=== PATIENT | male | born 1975 | race Caucasian/White ===

== ENCOUNTER 2023-08-12 15:23 | Outpatient (OUT) | payer MEDICAID, SELFPAY ==
[2023-08-12 16:15] LABS: Estimated Average Glucose 100 mg/dL; Glycohemoglobin A1C 5.1 % (4.5-6.2)
== END 2023-08-12 15:24 | disposition home or self-care (01) ==
LOC: LAB 15:27
PROVIDERS: PCP Nurse Practitioner Primary Care; Visit Provider Orthopaedic Surgery
DX: E13.69 Other specified diabetes mellitus with other specified complication (principal)
CPT/HCPCS: 36415; 83036

== ENCOUNTER 2025-05-25 09:53 | Outpatient (REF) | payer MEDICAID, SELFPAY ==
--- OUTSIDE RECORDS SUMMARY | 2025-05-24 09:27 | XMS_ITS | Continuity of Care Document ---
Author Organization [facility] Address [address] [place] [address] Phone Care Team Providers Care Extrusion Die Repairer Name Role Phone Lata Colby APRN Primary Care Provider Lata Colby APRN Attending Provider Care Teams Patient Care Team Team Status: Active Member Role/Relationship Status Dates Lata Colby APRN TRANSFER CAR OPERATOR DRIER-C Primary Care Provider Active Patient Care Team Team Status: Inactive Member Role/Relationship Status Dates Lata Colby APRN TRANSFER CAR OPERATOR DRIER-C Primary Care Provider Active Start: May 242024 End: May 24, 2025Lata Colby APRN TRANSFER CAR OPERATOR DRIER-CAttending ProviderActive Start: May 24, 2025 End: May 24, 2025 Chief Complaint and Reason for Visit Chief Complaint Admit Date stomach troubles May 24, 2025 1:16pm Reason for Visit Admit Date Abdominal pain May 24, 2025 1:16pm Bloating May 24, 2025 1:16pm Diarrhea May 24, 2025 1:16pm GERD (gastroesophageal reflux disease) N ovember 2024 1:16pm History of substance abuse May 1:16pm Hypertension May 24, 2025 1:16pm Nicotine dependence May 24, 2025 1:16pm Type 2 diabetes mellitus May 24, 2025 1:16pm Wellness examination May 24, 2025 1:16pm Reason for Referral Type Reason(s) Provider Provider Contact Information P k[place]e Address Start Date Referral to circuit designer Abdominal pain Diarrhea Abdominal bloating Gastroesophageal reflux qgqqcgxQ81.9 - Unspecified abdominal pain,R19.7 - Diarrhea, unspecified,R14.0 - Abdominal distension (gaseous),K21.9 - Gastro-esophageal reflux disease without esophagitisFPG GastroenterologyWork Phone: [phone] [address] [address] [address] Allergies, Adverse Reactions, Alerts Allergen Type Severity Reaction Last Updated Verified Status No Known Allergies Allergy Unknown May 24, 2025 1:17pmYesActive Social History Smoking Status Status Start Date End Date Date of Observa tion Smokes tobacco daily (finding) December 05, 2023 9:16am Observation Status Observation Response Date of Response Legal Sex Male (finding) [facility] 1974 Family History Relationship Condition Age at Onset Recorded Date/T kori mother Unknown Problems Active Problems Problem Diagnosis/Recorded Date Onset Date Stat us Chronic venous insufficiency of lower extremity December 04, 2023 7:07am Unknown Active Nicotine dependence December 07, 2023 7:18pm Unknown Active Type 2 diabetes mellitus December 05, 2023 8:32am Unknown Active Avascular necrosis of right femur December 04, 2023 7:07a m Unknown Active Diarrhea May 24, 2025 2:07pm Unknown A ctive Wellness examination May 24, 2025 2:13pm Unknow n Active Seasonal allergies December 05, 2023 8:33am Unknown Active Maxillary sinusitis December 07, 2023 7:16pm Unknown Active Bloating May 24, 2025 2:06pm Unknown A ctive History of substance abuse December 07, 2023 7:18pm Unkno wn Active GERD (gastroesophageal reflux disease) December 04, 2023 7:07am Unknown Active Abdominal pain May 24, 2025 2:12pm Unknown Active Hypertension December 05, 2023 8:31am Unknown Active Medications Medication Status Dose Units Route Directions Qty Days Refills S tart Date Stop Date End Date Reason(s) Instructions Adherence Furosemide 20 mg tablet Active 20 MG PO Daily as needed for edema January 05, 2024 2:58pm Complies with drug therapyLisinopril 20 mg tabletDiscontinued0.ROUTE.MALNAZO104 April 21, 2024 9:54amNovember 2023 9:49amHypertension Essential (primary) hypertensionTAKE 1 TABLET BY MOUTH EVERY DAYLisinopril 20 mg tabletDiscontinued0.ROUTE.RJLCVSZ350Etjgxnhb 2023 9:49amDecember 2023 3:08pmHypertension Essential (primary) hypertensionTAKE 1 TABLET BY MOUTH EVERY DAYFamotidine (Pepcid) 20 mg rfhitwKjhpqjmlgigf86GQTTTkdwy lhdip79055Bfjdxpz 2024 7:43am August 17, 2024 7:54amGastroesophageal reflux disease Gastro-esophageal reflux disease without esophagitisFamotidine (Pepcid) 20 mg bjsnbiUcoaoxrdbzft20GLBJWstqv pltxt58929Fqmgcuvf 2024 7:53amMarch 2024 6:48amGastroesophageal reflux disease Gastro-esophageal reflux disease without esophagitisFamotidine (Pepcid) 20 mg qzcfbbLkiirqpehcnc72BTGRXobhi kojkf33399Uerfg 2024 6:48amApril 2024 8:15amGastroesophageal reflux disease Gastro-esophageal reflux disease without esophagitisMetformin 1,000 mg tablet Yuhbtpivaflj0698HDEJPjert daily with rnptt14570Avszy 2024 6:50amJune 2024 6:55amType 2 diabetes mellitus Type 2 diabetes mellitus without complicationsFamotidine (Pepcid) 20 mg tablet Zugypwpjbnkw40KIKJJbcnr jgvkh64609Rojaq 2024 8:15amMay 2024 6:53am Gastroesophageal reflux disease Gastro-esophageal reflux disease without esophagitisFamotidine (Pepcid) 20 mg ponakuEkrjztfjipxo61WXUKTzhfw xpisc46908Qij 2024 6:53amJune 2024 6:58amGastroesophageal reflux disease Gastro-esophageal reflux disease without esophagitisFamotidine (Pepcid) 20 mg ceezraBlpvouhcuvtw94RLEOYxxdk nompw02103Sriy 2024 6:58amJune 2024 6:52amGastroesophageal reflux disease Gastro-esophageal reflux disease without esophagitisMetformin 1,000 mg tablet Snzuicquplos0415DWUAJqpff daily with womgj60730Neqd 2024 6:55amSeptember 2024 6:32amType 2 diabetes mellitus Type 2 diabetes mellitus without complicationsFamotidine (Pepcid) 20 mg tablet Gtwpgfjnkhaq75IIMQUjzzt xvgiv17489Cgrb 2024 6:52amJuly 2024 10:40am Gastroesophageal reflux disease Gastro-esophageal reflux disease without esophagitisFamotidine (Pepcid) 20 mg bvavowBttbyxfzglvr76NZTPJgsmz bztoh50518Ojdg 2024 10:40amSeptember 2024 2:15pmGastroesophageal reflux disease Gastro-esophageal reflux disease without esophagitisLisinopril 20 mg tablet Discontinued0.ROUTE.EXJOQTE861RpaeFebruary 03, 2025 6:41amNovember 2024 2:02pm Hypertension Essential (primary) hypertensionTAKE 1 TABLET BY MOUTH EVERY DAY FOR 90 DAYS Famotidine (Pepcid) 20 mg jklfbjMfjksz66LJPXTcuzv mwplo80628Ffqswlhfi 2024 2:15pmGastroesophageal reflux disease Gastro-esophageal reflux disease without esophagitisComplies with drug therapy Metformin 1,000 mg qqavubFluthnbyrtsg2775TZFOIispt daily with nnzax13233 March 17, 2025 6:32amNovember 2024 2:00pmType 2 diabetes mellitus Type 2 diabetes mellitus without complicationsLisinopril 20 mg tablet Mayygwjzsaub73FAIRAkhnrIup 29th, 2024 11:00pmDecember 05, 2023 8:33amMetformin 1,000 mg anghfdIkgccfkrifzu9187GQJUNuipp daily with mealsDecember 03, 2023 11:00pm December 05, 2023 8:33amHydroxyzine Pamoate 50 mg qjlrfkgHtfscdlggbgu44OIHJUbocv at bedtime as neededDecember 03, 2023 11:00pmDecember 05, 2023 8:19amBuprenorphine- Naloxone 8-2 mg filmActive0.ROUTE.COMPLEXDecember 03, 2023 11:00pmdissolve 1.5 to 2 films under the tongue once daily if neededComplies with drug therapyAlbuterol Sulfate 90 mcg/actuation HFA aerosol zvkebfbMwahsjiulppr0RDBJEPVOVQJSCYRPIZG 4-6 HOURS as needed for shortness of breath or wheezingDecember 04, 2023 11:00pmDecember 05, 2023 8:33amLisinopril 20 mg cmblveHgloxtdasqog53ENVDNqyhx68822Iji 31st, 2024 8:31amOctober 2023 9:54amHypertension Essential (primary) hypertensionMetformin 1,000 mg hedvsqBkzpfzgxpxtx9652RTIX Twice daily with jzjtm09384Uij2023 8:31amDecember 2023 3:08pmType 2 diabetes mellitus Type 2 diabetes mellitus without complicationsAlbuterol Sulfate 90 mcg/actuation HFA aerosol lnxmpghHzoiusejtnjv0JRUPHAZLNIRZRVJSGYC 4-6 HOURS as needed for shortness of breath or wheezing6.7305May 2023 8:33amDecember 2023 3:10pmSeasonal allergies Other seasonal allergic rhinitisAmoxicillin-Pot Clavulanate 875-125 mg tablet Vzynhjnyloab7TQKIQZadan fnomw12800Fzn2023 11:00pmNovember 2023 2:08pmMaxillary sinusitis Chronic maxillary sinusitisFurosemide 20 mg lwlobcPcqdcpxfpqte52GGAGGwcbv as needed for edemaJune 2023 11:00pmJuly 2023 2:58pmLisinopril 20 mg texoaeVgzhvssgjcdy68UKCDFkbgz03777Qzigcyap 16th, 2024 3:07pmJuly 2024 6:42amHypertension Essential (primary) hypertensionMetformin 1,000 mg pwsfuiKtjlkbyywlyc7282FJUT Twice daily with lenis27827Rmgcbrid2023 3:08pmMarch 2024 6:51amType 2 diabetes mellitus Type 2 diabetes mellitus without complicationsFamotidine (Pepcid) 20 mg tablet Eckavnukrmkz65DKCFMuqzv ojojc57686Atxgqzgf 16th, 2024 12:00amJanuary 2024 7:43amGastroesophageal reflux disease Gastro-esophageal reflux disease without esophagitisAlbuterol Sulfate 90 mcg/actuation HFA aerosol wwxjlboZiwqvm4SAXJJZHKUBGBMSQOJNC 4-6 HOURS as needed for shortness of breath or wheezing6.ce2023 3:10pmSeasonal allergies Other seasonal allergic rhinitisComplies with drug therapyLisinopril 20 mg dvsyqdWhjbhi96RZEFPkitf cxsgs635735Hotvjzmr 18th, 2025 1:57pmHypertension Essential (primary) hypertensionComplies with drug therapySitagliptin Phosphate (Januvia) 50 mg cyomkeKcuimq92HUPGGithe03871Xurzdknz 18th, 2025 12:00amType 2 diabetes mellitus Type 2 diabetes mellitus without complicationsComplies with drug therapy Relevant Diagnostic Tests and/or Laboratory Data Laboratory Results Test Collection Date/Time Result Date/Time Result Interpretation Reference Range Result Comment Performing Site Bedside Hemoglobin A1c May 24, 2025 1:36pm Jodi dupree 2024 1:46pm 7.9 % Vital Signs Vital Reading Result Reference Range Collection Date/Time Height 70 [in_i] May 24, 2025 1:99htZhjdxq70.94 kgMay 24, 2025 1:20pmBody Mbnalqtjpoq29.8 [degF]97.6-99.0May 24, 2025 1:20pmHeart Lbof846 /min 60-100May 24, 2025 1:20pmOxygen saturation by Pulse twpzxkda07 %95-100 May 24, 2025 1:20pmBP Tdrdknxh278 mm[Hg]100-140May 24, 2025 1:20pm BP Dczdwgboe58 mm[Hg]60-100May 24, 2025 1:20pmBMI (Body Mass Index)21.8 kg/k5ZjbynuyfMay 24, 2025 1:20pm Advance Directives Advance Directive Response Recorded Date/ Time Advance Directives No September 27 021 11:56am Insurance Providers Guarantor Tino Lockhart Address [address] [place] [id number] Info.Home Phone: Payer Group Member ID Coverage Type Subscriber Relationship to Subscriber Effective Date Expiration Date Medicaid [id number] Manley , D Id: [id number] [address] [place] [id number] [facility] [id number] Manley , D Id: [id number] [address] [place] [id number] [facility] Phone: [facility] Unemployed Id: [id number] Manley , D Id: [id number] [address] [place] [phone] Home Phone: Self Encounters Encounter Location(s) Arrival/Admit Date Discharge/Departure Date Discharge/Departure Disposition Provider(s) Departed Physician/ Provider Office Visit -[facility] May 24, 2025 1:16pm May 24, 2025 2:26pm Discharged to home care or self care (routine discharge) Lata Colby APRN CNP Recent Diagnosis Onset Date Admit Date Abdominal pain Unknown May 24, 2 025 1:16pm Bloating Unknown May 24 025 1:16pm Diarrhea Unknown May 24 025 1:16pm GERD (gastroesophageal reflux disease) Unknown May 24, 2025 1:16pm History of substance abuse Unknown 2024 1:16pm Hypertension Unknown May 24, 025 1:16pm Nicotine dependence Unknown May 1:16pm Type 2 diabetes mellitus Unknown [facility] 2024 1:16pm Wellness examination Unknown May 242024 1:16pm Assessments Diagnosis Onset Date Resolution Status Admit Date Abdominal pain acuteMay 24, 2025 1:16pmBloatingacuteMay 24, 2025 1:16pmDiarrhea acuteMay 24, 2025 1:16pmGERD (gastroesophageal reflux disease)acute May 24, 2025 1:16pmHistory of substance abuseacuteMay 24, 2025 1:16pmHypertensionacuteMay 24, 2025 1:16pmNicotine dependenceacute May 24, 2025 1:16pmType 2 diabetes mellitusacuteMay 24, 2025 1:16pmWellness examinationacuteMay 24, 2025 1:16pm Plan of Treatment Future Tests Future scheduled test information is unavailable Pending Tests Test Name Ordered Date Scheduled Date US abdomen limited May 24, 2025 2:11pm Comprehensive Metabolic PanelNov2024 2:05pmUS pelvic complete May 24, 2025 2:11pm Future Visits Future appointment information is unavailable Future Procedures Procedure Name Ordered Date Scheduled Date Send Out Stool Culture May 24, 2025 2:05p m Complete Blood Count Auto DiffNovember 2024 2:05pmLipid PanelNovember 2024 2:05pmMicroAlb Creat Ratio,UNovember 2024 2:05pm Future Medications Future medication information is unavailable Patient Instructions Patient instructions are unavailable Hospital Discharge Instructions Ambulatory Orders* Referral to Gastroenterology Time Frame: 05/24/25, Location: None Selected
--- OUTSIDE RECORDS SUMMARY | 2025-05-25 10:14 | XMS_ITS | Clinical Summary ---
Author Organization [facility] Address [address], [address] [place] [address] Care Team Providers Care Hand Coremaker Name Role Phone Terry Tillman APRN - NOE Primary Care Provi yajaira Allergies Active AllergyReactionsCriticalityNoted DateCommentsDust Mite Wiycljp6807/14/2020 Short Ragweed Pollen Ext07/14/2020 Medications MedicationSigDispense QuantityRefillsLast FilledStart DateEnd DateStatus albuterol sulfate HFA (PROVENTIL;VENTOLIN;PROAIR) 108 (90 Base) MCG/ACT inhaler Inhale 2 puffs into the lungs every 6 hours as needed for Wheezing Albuterol 90 mcg/actuation aersolActive cloNIDine (CATAPRES) 0.2 MG tablet Take 1 tablet by mouth as neededActive gabapentin (NEURONTIN) 300 MG capsule Take 1 capsule by mouth 3 times daily.Active buprenorphine-naloxone (SUBOXONE) 8-[address] 1 Film under the tongue daily.Active lisinopril (PRINIVIL;ZESTRIL) 20 MG tablet Take 1 tablet by mouth daily10/11/2022ctive Active Problems ProblemNoted DateDiagnosed DateCardiac taerme9807/15/20206234Febqrye84/09/2021cute on chronic pscfldsijtpy93/09/2021Hepatitis C007/15/2020lcohol abuse07/15/2020 Chronic alcoholic ihlvdmggvtqf89/08/2021 Social History Tobacco UseTypesPacks/DayYears UsedDateSmoking Tobacco: Every DayCigarettes Smokeless Tobacco: Never Tobacco Cessation:Ready to Q uit: No; Counseling Given: Yes Alcohol UseStandard Drinks/WeekCommentsYes0 (1 standard drink = 0.6 oz pure alcohol)Drinks a half a gallon vodka daily-the cheap kind from the gas station He had quit drinking forawhile, but restarted during shutdown with Covid-19 restrictions when he became depressedSex and Gender InformationValue Date RecordedSex Assigned at BirthNot on fileLegal GekFrsi8208/16/2012 1:54 PM EST Gender IdentityNot on fileSexual OrientationNot on fileOccupationIndustryJob Start DateJob End DateunemployedNot on fileNot on fileNot on file Last Filed Vital Signs Vital SignReadingTime TakenCommentsBlood Cnbpqyax764/8604 10:40 AM EDT Vkpmg08418/28/2023 10:40 AM YHWEyyqrlhdouo22.1 ??C (98.8 ??F)07/15/2020 3:10 AM ESTRespiratory Spot797107/15/2020 10:00 AM ESTOxygen Agrgrxwfse98%07/15/2020 8:00 AM ESTInhaled Oxygen Concentration--Yleeay32.1 kg (148 lb)11/01/2022 10:40 AM XFZUgdtca070.8 cm (5' 10 )07/14/2020 7:00 PM ESTBody Mass Index21.24007/14/2020 7:00 PM EST Plan of Treatment Health MaintenanceDue DateLast DoneCommentsDepression Pnsxeb0604/19/1989 DTaP/Tdap/Td vaccine (1 - Tdap)1996Hepatitis B vaccine (1 of 3 - 19+ 3- dose series)1996Pneumococcal 0-49 years Vaccine (1 of 2 - PCV)1996 Jdwlrt2004/19/20179598Emoyfjembxh42/14/2022olorectal Cancer Kbjwcl6804/19/2022FIT/FOBT: Average risk2022Fecal-DNA (Cologuard): Average risk2022 Sigmoidoscopy/CT leisvsdsuwix35/14/2022Flu vaccine (#1)5COVID-19 Vaccine (2 - season)5008/03/2021HIV ygsovyUtvmdbgpv23/18/2013 Hepatitis C ymnkicFeypywivswft13/18/2013Hepatitis A vaccineAged OutNo longer eligible based on patient's age to complete this topicHib vaccineAged OutNo longer eligible based on patient's age to complete this topicMeningococcal (ACWY) vaccineAged OutNo longer eligible based on patient's age to complete this topicMeningococcal B vaccineAged OutNo longer eligible based on patient's age to complete this topicPolio vaccineAged OutNo longer eligible based on patient's age to complete this topic Procedures Procedure NamePriorityDate/TimeAssociated DiagnosisCommentsHIV SCREENRoutine 01/21/2013 4:13 PM EDT HEPATITIS PANEL, WHXSJWwtshol69/18/2013 4:13 PM EDT from Last 3 Months or Most Recently Relevant to Health Maintenance Results * (ABNORMAL) Hepatitis Panel, Acute (01/21/2013 4:13 PM EDT)ComponentValueRef RangeTest MethodAnalysis TimePerformed AtPathologist SignatureHepatitis B Surface XcWBSTNCVARIGGV41/18/2013 9:40 PM EDTMHPN LABHepatitis C AbREACTIVE(A) NR01/21/2013 10:06 PM EDTMHPN LABComment: ? The hepatitis C procedure used in our laboratory is a Chemiluminescent test specific for three recombinant HCV antigens. ??A negative anti-HCV result indicates that the antibodies to hepatitis C virus are not present at this time. Individuals with reactive anti-HCV should be considered infected and infectious until proven otherwise. ??Confirmation of all equivocal or reactive results is recommended by ordering HCV RNA by PCR. Hep B Core Ab, WpOHCURVHQGYFSFX65/18/2013 10:06 PM EDTMHPN LABHep A IgM LSTQTFPGXIXZO06/18/2013 10:06 PM EDTMHPN LABComment:Performed at [address] [id number] Specimen (Source) Anatomical Location / LateralityCollection Method / VolumeCollection Time Received Time01/21/2013 4:13 PM EDT01/21/2013 4:14 PM EDT Narrative Authorizing ProviderResult TypeResult StatusHaridas M Dasani MDIMMUNOLOGY ORDERABLESFinal ResultPerforming OrganizationAddressCity/State/ZIP CodePhone Number [facility] * HIV-1 and HIV-2 antibodies (01/21/2013 4:13 PM EDT)ComponentValueRef RangeTest MethodAnalysis TimePerformed AtPathologist SignatureHIV 1/2 Antibody RKNLOBKKBOEHX81/19/2013 12:46 AM EDTMHPN LABComment: ? Interpretation: ? The presence of antibody to HIV and its association with the potential infectivity, transmission or diagnosis of AIDS has not been established. Furthermore, a 'Non-Reactive' test result does not exclude the possibility of exposure to or infection with HIV. If the above test result is 'Reactive', the Laboratory will order the confirmatory test. Performed at [facility] [address] [place], [place] [id number] Specimen (Source)Anatomical Location / LateralityCollection Method / Volume Collection TimeReceived Time01/21/2013 4:13 PM EDT01/21/2013 4:14 PM EDT Narrative Authorizing ProviderResult TypeResult StatusDmitriy Milligan MDIMMUNOLOGY ORDERABLESFinal ResultPerforming OrganizationAddressCity/State/ZIP CodePhone Number [facility] from Last 3 Months or Most Recently Relevant to Health Maintenance Additional Health Concerns InfectionOnset DateLast WwldhaifkIQBA54/08/202101/02/2021 Insurance Advance Directives * Full Code (Latest Code Status on File) Date ActivatedDate InactivatedComments1/02/2021 6:59 PM07/15/2020 1:44 PM * Full Code Date ActivatedDate InactivatedComments07/14/2020 6:55 PM07/14/2020 6:59 PM Care Teams Team MemberRelationshipSpecialtyStart DateEnd Date Terry Tillman APRN - NOE PCP - GeneralNurse Practitioner11/01/22
--- OUTSIDE RECORDS SUMMARY | 2025-05-25 10:15 | XMS_ITS | Clinical Summary ---
Author Organization [facility] Address [address] [place] [address] Care Team Providers Care Order Entry Specialist Name Role Phone Terry Tillman MD Unavailable Candida Romero NP Unavailable [phone] Allergies No known active allergies Medications MedicationSigDispense QuantityRefillsLast FilledStart DateEnd DateStatus Buprenorphine HCl-Naloxone HCl (Suboxone) 8-[address] 8.5 mg under the tongueActive albuterol HFA 90 mcg/act inhaler Inhale 2 puffsActive glucose blood (True Metrix Blood Glucose Test) test strip use 1 TEST STRIP to TEST BLOOD SUGAR twice a day In Vitro for 50 DaysActive lisinopril 20 MG tablet Take 20 mg by mouth in the morning.Active metFORMIN (Glucophage) 1000 MG tablet Take 1,000 mg by mouth in the morning and 1,000 mg in the evening. Take with meals.Active Family History Medical HistoryRelationNameCommentsBrain cancerMotherRelationNameStatusComments MotherDeceased Social History Tobacco UseTypesPacks/DayYears UsedDateSmoking Tobacco: Every DayCigarettes Smokeless Tobacco: Never Tobacco Cessation:Ready to Q uit: Not Asked; Counseling Given: Not Answered Alcohol UseStandard Drinks/WeekCommentsYes0 (1 standard drink = 0.6 oz pure alcohol)4DRINKS/WKSex and Gender InformationValueDate RecordedSex Assigned at BirthNot on fileLegal VpcDwub0609/18/2022 8:28 PM EDTGender IdentityNot on file Sexual OrientationNot on file Last Filed Vital Signs Vital SignReadingTime TakenCommentsBlood Ykcgkpzz877/5401 12:00 PM EST Pulse--Temperature--Respiratory Rate--Oxygen Saturation--Inhaled Oxygen Concentration--Gitmfx27 kg (150 lb)07/16/2023 9:57 AM TVGBslqae094.8 cm (5' 10 ) 07/16/2023 9:57 AM ESTBody Mass Index21.52007/16/2023 9:57 AM EST Plan of Treatment Health MaintenanceDue DateLast DoneCommentsCT Brtymqznjdnv1977Colonoscopy 1977Colorectal Cancer Kkrsdwlaw1977FIT-DNA1977FIT1977 FOBT04/19/19772803Tqukslhnkffmi1977Diabetes: Retinopathy Tqqazbsbc24/14/1987 Diabetes: Urine Protein Hapgfzqyp23/14/1996Pneumococcal Vaccine: Pediatrics (0 to 5 Years) and At-Risk Patients (6 to 64 Years) (1 of 2 - PCV)1996 Diabetes: Hemoglobin A1C, 3COVID-19 Vaccine ( season)Influenza Vaccine (#1)2025 Procedures Procedure NamePriorityDate/TimeAssociated DiagnosisCommentsHEMOGLOBIN G5CHnbuyyo 06/23/2024 10:00 AM EST from Last 3 Months or Most Recently Relevant to Health Maintenance Results * Hemoglobin A1c (06/23/2024 10:00 AM EST)Specimen (Source)Anatomical Location / LateralityCollection Method / VolumeCollection TimeReceived TimeBloodVenous blood specimen / Unknown Narrative Authorizing ProviderResult TypeResult StatusNoms Provider Unallocated MDLAB BLOOD ORDERABLESFinal Result from Last 3 Months or Most Recently Relevant to Health Maintenance Insurance MemberSubscriberPlan / Payer (Effective 2022-Present)Name:Rey Bolton Relation to Subscriber:SelfName:Rey Bolton Payer ID:Not on file Group ID:[id number] Type:Not on file Address: [facility] [id number] [place] [id number] Care Teams Team MemberRelationshipSpecialtyStart DateEnd Date Candida Romero NP [address] [place] [address] PCP - [facility]04/06/24 Terry Tillman MD [address] [place] [address] Referring PhysicianInternal Medicine07/16/23
--- OUTSIDE RECORDS SUMMARY | 2025-05-25 10:15 | XMS_ITS | Clinical Summary ---
Author Organization ActSocial tem Address [id number] [address] [place] [address] Care Team Providers Care Vision Specialist Name Role Phone Terry Tillman HIRAM-SLUBBER RUNNER Primary Care Provider [phone]- [phone] Allergies No known active allergies Medications MedicationSigDispense QuantityRefillsLast FilledStart DateEnd DateStatus buprenorphine HCl/naloxone HCl (SUBOXONE SL) Place 8.5 mg under the tongue.Active albuterol (PROVENTIL HFA;VENTOLIN HFA) 90 mcg/actuation inhaler Inhale 2 puffs every 6 (six) hours as needed for wheezing.Active mupirocin (BACTROBAN) 2 % cream Apply 1 application topically in the morning and 1 application at noon and 1 application before bedtime. 15 g 2Active Active Problems No known active problems Social History Tobacco UseTypesPacks/DayYears UsedDateSmoking Tobacco: Every DayCigarettes Smokeless Tobacco: FormerAlcohol UseStandard Drinks/WeekCommentsNot Lgpmjbbiz03 (1 standard drink = 0.6 oz pure alcohol)states he is no longer drinkingChildcare AnswerDate WupvfgvbPyyvdnkhaExsuuht29/12/2019EmploymentAnswerDate Recorded VtcqbjeatgFpdrqnc53/12/2019Purpose - LifeAnswerDate RecordedPurpose and direction in xgalJoxdgpx17/11/2021ex and Gender InformationValueDate Recorded Sex Assigned at BirthNot on fileLegal IreJouc7302/09/2015 11:45 AM EDTGender IdentityNot on fileSexual OrientationNot on file Last Filed Vital Signs Vital SignReadingTime TakenCommentsBlood Ymfvckul453/34299/ 2:50 PM EDT Vyjdf07364/19/2022 2:50 PM KUIHdtpybrpivy35.8 ??C (98.3 ??F)01/22/2022 2:50 PM EDTRespiratory Lsqd955501/22/2022 2:50 PM EDTOxygen Iycpwirurx40%01/22/2022 2:50 PM EDTInhaled Oxygen Concentration--Wcakpq17.6 kg (160 lb)01/22/2022 2:50 PM EDT Rxgvcu328.8 cm (5' 10 )01/22/2022 2:50 PM EDTBody Mass Index22.9601/22/2022 2:50 PM EDT Plan of Treatment Health MaintenanceDue DateLast DoneCommentsDepression Vgwluislt62/14/1989Tobacco Fhiboahff29/14/1989Adult BMI Mcrevtrgi86/14/1995DTaP,Tdap and Td Vaccines (1 - Tdap)1996COVID-19 Vaccine (2 - season)/ Influenza Fbhylcl5403/07/2025 Medical Devices Not on file Insurance Care Teams Team MemberRelationshipSpecialtyStart DateEnd Date Terry Tillman APRN-SLUBBER RUNNER PCP - GeneralPrimary Care Ouiofxos30/22/22
--- OUTSIDE RECORDS SUMMARY | 2025-05-25 10:15 | XMS_ITS | Clinical Summary ---
Author Organization [facility] Address [address] [place] [address] Care Team Providers Care University Tutor Name Role Phone Unavailable Primary Care Provider Unavailabl e Allergies No known active allergies Medications MedicationSigDispense QuantityRefillsLast FilledStart DateEnd DateStatus amlodipine-benazepril 5-10 MG capsule 06/18/2020Active buprenorphine 8 mg/naloxone 2 mg SL film dissolve 1 and 1/2 FILMS under the tongue once daily06/08/2020Active buPROPion 150 MG tablet XL 06/18/2020Active albuterol (2.5 MG/3ML) 0.083% inhalation solution INHALE 1 (ONE) vial via NEBULIZER EVERY 4 HOURS LKFCFA7006/06/2020Active D 5000 125 MCG (5000 UT) per tablet Take 5,000 Units by mouth daily.06/01/2020Active cloNIDine 0.2 MG tablet Take 0.2 mg by mouth 3 times daily as needed.05/20/2020Active docosanol 10 % Cream cream APPLY TO THE AFFECTED AREA(S) FIBRROSN03/06/2020Active fluticasone 50 MCG/ACT Suspension nasal spray instill 2 (TWO) spray in EACH nostril DAILY04/18/2020Active gabapentin 600 MG tablet At bedtime.Active predniSONE 10 MG tablet At bedtime.Active pantoprazole [address] tablet DR Take 40 mg by mouth 2 times daily.05/20/2020Active furOSEmide 40 MG tablet Take 0.5 tablets by mouth daily. 5 tablet 06/18/2020Active Social History Tobacco UseTypesPacks/DayYears UsedDateSmoking Tobacco: Every DaySmokeless Tobacco: NeverAlcohol UseStandard Drinks/WeekCommentsYes0 (1 standard drink = 0.6 oz pure alcohol)Sex and Gender InformationValueDate RecordedSex Assigned at BirthNot on fileLegal ClpYbkx39/13/2020 4:07 PM ESTGender IdentityNot on file Sexual OrientationNot on file Last Filed Vital Signs Vital SignReadingTime TakenCommentsBlood Zbiuyirw970/6906/18/2020 7:02 PM EST Ppdog945606/18/2020 7:02 PM DNCMwpisffndev41.2 ??C (97.1 ??F)06/18/2020 4:22 PM ESTRespiratory Utek158708/19/2019 7:02 PM ESTOxygen Jpsjmwkhhz99%06/18/2020 7:02 PM ESTInhaled Oxygen Concentration--Weight--Height--Body Mass Index-- Plan of Treatment Health MaintenanceDue DateLast DoneCommentsHEPATITIS C VIRUS VJFNWOBGP1977 TWBWJVW6004/19/1977HIV SCREENING GEITHUYZIT91/14/1992HEP B VACCINE (1 of 3 - 19+ 3-dose series)1996TDAP (ADULT)1996LIPID XDXXZGXEJ30/14/2017 COLORECTAL CANCER SCREENING VQPZPCNIPO67/14/2022COVID-19 VACCINE ( - 2024- season)2025INFLUENZA VACCINE (#1)03/07/20252853FECISHPWHKpmdbwcyotfv97/13/2020 PNEUMOCOCCAL VACCINE SERIESAged OutNo longer eligible based on patient's age to complete this topic Procedures Procedure NamePriorityDate/TimeAssociated DiagnosisCommentsCOMPREHENSIVE METABOLIC GIKGMOIEW34/13/2020 5:28 PM EST from Last 3 Months or Most Recently Relevant to Health Maintenance Results * (ABNORMAL) COMPREHENSIVE METABOLIC PANEL (06/18/2020 5:28 PM EST)Component ValueRef RangeTest MethodAnalysis TimePerformed AtPathologist SignatureGlucose 128(H)70 - 100 MG/DLLAB, OSUComment: NORMAL <100 mg/dL PREDIABETES 101-126 mg/dL DIABETES 126 mg/dL or higher BUN77 - 20 MG/DLLAB, OSUCREATININE SERUM0.64(L)0.7 - 1.2 MG/DLLAB, DIVXGIZSR475 137 - 145 MMOL/LLAB, OSUPotassium3.2(L)3.5 - 5.1 MMOL/LLAB, RRHBWNPCAAN32(L)98 - 107 MMOL/LLAB, OSUComment:Please note: Triglyceride levels of 600mg/dL or higher may positively bias chloride results by approximately 2.1 mmolCALCIUM9.98.4 - 10.2 MG/DLLAB, OSUPROTEIN, TOTAL7.76.3 - 8.2 GM/DLLAB, OSUAlbumin4.33.5 - 5.0 G/dlLAB, OSUBILIRUBIN, TOTAL0.50.2 - 1.3 MG/DLLAB, CVUGVA64(H)17 - 59 IU/LLAB, OSUALKALINE IKMVKIMIZFK89882 - 126 IU/LLAB, OSUCARBON DIOXIDE (CO2)3022 - 30 MMOL/LLAB, OSUA/G Ratio1.31.3 - 2.2 RATIOLAB, HJNQTM89<50 IU/LLAB, OSUESTIMATED GFR, NON AMER>60ml/min/1.73sq.mLAB, OSUESTIMATED GFR, >60ml/min/1.73sq.mLAB, OSUGFR COMMENTAverage GFR for 40-49 years old = 99.LAB, OSUComment: Chronic Kidney disease, GFR = <60. Kidney failure, GFR = <15. The GFR estimate is not adjusted for extreme body surface area or acute process, nor has it been validated for women or ethnic groups other than and . Specimen (Source)Anatomical Location / LateralityCollection Method / Volume Collection TimeReceived XdxkTjkuo26/13/2020 5:28 PM EST06/18/2020 5:29 PM EST Narrative Authorizing ProviderResult TypeResult StatusLevi K Webber MDCHEMISTRY ORDERABLES Final ResultPerforming OrganizationAddressCity/State/ZIP CodePhone Number LAB, [facility] [address] [place] [address] from Last 3 Months or Most Recently Relevant to Health Maintenance
== END 2025-05-25 09:54 | disposition home or self-care (01) ==
LOC: LAB 09:53
PROVIDERS: PCP Nurse Practitioner Primary Care; Visit Provider Nurse Practitioner Family
DX: R14.0 Abdominal distension (gaseous) (principal); R19.7 Diarrhea, unspecified
CPT/HCPCS: 87045; 87046; 87427

== ENCOUNTER 2025-05-27 10:46 | Outpatient (OUT) | payer MEDICAID, SELFPAY ==
--- OUTSIDE RECORDS SUMMARY | 2024-05-13 04:20 | XMS_ITS ---
Author Organization [facility] Address [address] [place] [address] Care Team Providers Care Personnel Research Psychologist Name Role Phone Dr. Sin Mahmood Primary Care Provider REASON FOR VISIT DELIVERY Encounters Encounter Location Date Provider Diagnosis [facility] [address] [place] [address] 05/13/2024 Sin Mahmood Plan Of Treatment No Information Progress Notes * JACQUIE BATESOB:1975 (50 yo M)Acc No.[id number]:05/13/2024 Dental Appointment Patient: REYNALDO BELLWN :?Sin Mahmood DDSDOB:1975???Age:49 Y???Sex: MaleDate:05/13/2024hone:[phone]:[address] [place], [place] [address] Subjective: * Chief Complaints: * D ELIVERY * Electronic signature of Dr. Sin Mahmood , DMD, [id number] on 05/27/2025 at 10:56 AM ESTSign off status: Pending * Provider: Divine Mahmood DDS Date: 07/13/2023 Generated for Printing/Faxing/eTransmitting on:?05/27/2025 10:56 AM EST
--- OUTSIDE RECORDS SUMMARY | 2024-10-01 09:00 | XMS_ITS ---
Author Organization [facility] Address [address] [place] [address] Care Team Providers Care Sales Executive Insurance Name Role Phone Dr. Sin Mahmood Primary Care Provider REASON FOR VISIT DELIVERY Encounters Encounter Location Date Provider Diagnosis [facility] [address] [place] [address] 10/01/2024 Sin Mahmood Plan Of Treatment No Information Progress Notes * JACQUIE BATESOB:1975 (50 yo M)Acc No.[id number]:10/01/2024 Dental Appointment Patient: REYNALDO BELLWN :?Sin Mahmood DDSDOB:1975???Age:49 Y???Sex: MaleDate:10/01/2024Phone:[phone]:[address] [place] [address] Subjective: * Chief Complaints: * D ELIVERY * Electronic signature of Dr. Sin Mahmood , DMD, [id number] on 05/27/2025 at 10:55 AM ESTSign off status: Pending * Provider: Divine Mahmood DDS Date: 0 10/01/2024 Generated for Printing/Faxing/eTransmitting on:?05/27/2025 10:55 AM EST
--- OUTSIDE RECORDS SUMMARY | 2024-10-25 06:55 | XMS_ITS ---
Author Organization [facility] Address [address] [facility] [place] [address] Care Team Providers Care Blood Tester Name Role Phone Dr. Sin Mahmood Primary Care Provider REASON FOR VISIT DELIVERY Encounters Encounter Location Date Provider Diagnosis [facility] [address] [place] [address] 10/25/2024 Sin Mahmood Plan Of Treatment No Information Progress Notes * JACQUIE BATESOB:1975 (50 yo M)Acc No.[id number]:10/25/2024 Dental Appointment Patient: REYNALDO BELLWN :?Sin Mahmood DDSDOB:1975???Age:49 Y???Sex: MaleDate:10/25/2024Phone:[phone]:[address] [place] [address] Subjective: * Chief Complaints: * D ELIVERY * Electronic signature of Dr. Sin Mahmood , DMD, [id number] on 05/27/2025 at 10:55 AM ESTSign off status: Pending * Provider: Divine Mahmood DDS Date: 0 10/25/2024 Generated for Printing/Faxing/eTransmitting on:?05/27/2025 10:55 AM EST
--- OUTSIDE RECORDS SUMMARY | 2024-11-01 06:20 | XMS_ITS ---
Author Organization [facility] Address [address] [place] [address] Care Team Providers Care Audio Video Technician Name Role Phone Dr. Sin Mahmood Primary Care Provider REASON FOR VISIT DELIVERY Encounters Encounter Location Date Provider Diagnosis [facility] Services [address] [place] [address] 11/01/2024 Sin Mahmood Plan Of Treatment No Information Progress Notes * JACQUIE BATESOB:1975 (50 yo M)Acc No.[id number]:11/01/2024 Dental Appointment Patient: REYNALDO BELLWN :?Sin Mahmood DDSDOB:1975???Age:49 Y???Sex: MaleDate:11/01/2024Phone:[phone]:[address] [place] [address] Subjective: * Chief Complaints: * D ELIVERY * Electronic signature of Dr. Sin Mahmood , DMD, [id number] on 05/27/2025 at 10:56 AM ESTSign off status: Pending * Provider: Divine Mahmood DDS Date: 0 11/01/2024 Generated for Printing/Faxing/eTransmitting on:?05/27/2025 10:56 AM EST
--- OUTSIDE RECORDS SUMMARY | 2024-11-02 07:00 | XMS_ITS ---
Author Organization [facility] es Address [address] [place] [address] Care Team Providers Care Blast Setter Name Role Phone Dr. Sin Mahmood Primary Care Provider REASON FOR VISIT DELIVERY Encounters Encounter Location Date Provider Diagnosis [facility] [address] [place] [address] 11/02/2024 Sin Mahmood Plan Of Treatment No Information Progress Notes * JACQUIE BATESOB:1975 (50 yo M)Acc No.[id number]:11/02/2024 Dental Appointment Patient: REYNALDO BELLWN :?Sin Mahmood DDSDOB:1975???Age:49 Y???Sex: MaleDate:11/02/2024Phone:[phone]:[address] [place] [address] Subjective: * Chief Complaints: * D ELIVERY * Electronic signature of Dr. Sin Mahmood , DMD, [id number] on 05/27/2025 at 10:56 AM ESTSign off status: Pending * Provider: Divine Mahmood DDS Date: 0 11/02/2024 Generated for Printing/Faxing/eTransmitting on:?05/27/2025 10:56 AM EST
--- OUTSIDE RECORDS SUMMARY | 2024-12-03 06:20 | XMS_ITS ---
Author Organization [facility] Address [address] [facility] [place] [address] Care Team Providers Care Casing Blower Name Role Phone Dr. Sin Mahmood Primary Care Provider REASON FOR VISIT ADJUSTMENT Encounters Encounter Location Date Provider Diagnosis [facility] [address] [facility] [place] [address] 12/03/2024 Sin Mahmood Plan Of Treatment No Information Progress Notes * JACQUIE BATESOB:1975 (50 yo M)Acc No.[id number]:12/03/2024 Dental Appointment Patient: REYNALDO BELLWN :?Sin Mahmood DDSDOB:1975???Age:49 Y???Sex: MaleDate:12/03/2024Phone:[phone]:[address] [place] [address] Subjective: * Chief Complaints: * A DJUSTMENT * Electronic signature of Dr. Sin Mahmood , [facility], [id number] on 05/27/2025 at 10:55 AM ESTSign off status: Pending * Provider: Divine Mahmood DDS Date: 0 12/03/2024 Generated for Printing/Faxing/eTransmitting on:?05/27/2025 10:55 AM EST
--- OUTSIDE RECORDS SUMMARY | 2025-05-27 10:55 | XMS_ITS | Patient Health Record ---
Author Organization [facility] Address [address] [place] [address] Care Team Providers Care Advanced Practice Rn Name Role Phone Dr. Sin Mahmood Primary Care Provider [phone] Reason For Referral No Information Medications Medication SIG (Take, Route, Frequency, Duration) Notes Start Date End Date Status Ibuprofen 800 MG Tablet 1 tablet with fo od or milk as needed Orally Three times a day 08/08/2023ctive Encounters Encounter Location Date Provider Diagnosis [facility] [address] [place] [address] 08[facility] [place] [address]/09/2024 Sin Patricioomplete loss of teeth, unspecified cause, class I K08.101[facility] [place] [address]/[facility] [place] [address]/ Sin Zabalaartial loss of teeth, unspecified cause, class I K08.401[facility] [place] [address] Assessments Encounter Date Diagnosis (ICD Code) Assessment Notes Treatment Notes Treatment Clinical Notes Section Notes 06/14/2024 Complete loss of deidra th, unspecified cause, class I (ICD-10 - K08.101) 11/19/2024Partial loss of teeth, unspecified cause, class I (ICD-10 - K08.401) Plan Of Treatment No Information Insurance Providers Payer Name Payer Address Payer Phone Subscriber Number Group Number Insured Name Patient Relationship to Insured Coverage Start Date Coverage End Date [employer] [place] [employer] [address] [address] [place] [address] [id number] SEEAM BATES Self - patient is the insured Dental W[employer] [facility] [address] [place] [id number] BATESelf - patient is the [id number] 2024
--- OUTSIDE RECORDS SUMMARY | 2025-05-27 10:56 | XMS_ITS | Clinical Summary ---
Author Organization [facility] Address [address] [place] [address] Care Team Providers Care Small Business Representative Name Role Phone Unavailable Primary Care Provider Unavailabl e Allergies No known active allergies Medications MedicationSigDispense QuantityRefillsLast FilledStart DateEnd DateStatus amlodipine-benazepril 5-10 MG capsule 06/18/2020Active buprenorphine 8 mg/naloxone 2 mg SL film dissolve 1 and 1/2 FILMS under the tongue once daily06/08/2020Active buPROPion 150 MG tablet XL 06/18/2020Active albuterol (2.5 MG/3ML) 0.083% inhalation solution INHALE 1 (ONE) vial via NEBULIZER EVERY 4 HOURS MCIBAI8106/06/2020Active D 5000 125 MCG (5000 UT) per tablet Take 5,000 Units by mouth daily.06/01/2020Active cloNIDine 0.2 MG tablet Take 0.2 mg by mouth 3 times daily as needed.05/20/2020Active docosanol 10 % Cream cream APPLY TO THE AFFECTED AREA(S) GYZBJLZE31/06/2020Active fluticasone 50 MCG/ACT Suspension nasal spray instill [...] InformationValueDate RecordedSex Assigned at BirthNot on fileLegal HclUhdy01/13/2020 4:07 PM ESTGender IdentityNot on file Sexual OrientationNot on file Last Filed Vital Signs Vital SignReadingTime TakenCommentsBlood Oepeoyjw601/6906/18/2020 7:02 PM EST Nftun247306/18/2020 7:02 PM VMOZwwksorcfwr75.2 ??C (97.1 ??F)06/18/2020 4:22 PM ESTRespiratory Ilmz232408/19/2019 7:02 PM ESTOxygen Ipfuxcjdxu03%06/18/2020 7:02 PM ESTInhaled Oxygen Concentration--Weight--Height--Body Mass Index-- Plan of Treatment Health MaintenanceDue DateLast DoneCommentsHEPATITIS C VIRUS UDUZBUQZI1977 AFTNFQE7204/19/1977HIV SCREENING IPFGWTBROZ09/14/1992HEP B VACCINE (1 of 3 - 19+ 3-dose series)1996TDAP (ADULT)1996LIPID BQHMLYZKY18/14/2017 COLORECTAL CANCER SCREENING AGHPUWSHLJ27/14/2022COVID-19 VACCINE ( - 2024- season)2025INFLUENZA VACCINE (#1)03/07/20252928NEOKWCIWYOitmefbcuzlw56/13/2020 PNEUMOCOCCAL VACCINE SERIESAged OutNo longer eligible based on patient's age to complete this topic Procedures Procedure NamePriorityDate/TimeAssociated DiagnosisCommentsCOMPREHENSIVE METABOLIC OBDUOMEXH79/13/2020 5:28 PM EST from Last 3 Months or Most Recently Relevant to Health Maintenance Results * (ABNORMAL) COMPREHENSIVE METABOLIC PANEL (06/18/2020 5:28 PM EST)Component ValueRef RangeTest MethodAnalysis TimePerformed AtPathologist SignatureGlucose 128(H)70 - 100 MG/DLLAB, OSUComment: NORMAL <100 mg/dL PREDIABETES 101-126 mg/dL DIABETES 126 mg/dL or higher BUN77 - 20 MG/DLLAB, OSUCREATININE SERUM0.64(L)0.7 - 1.2 MG/DLLAB, AICJQUDKX747 137 - 145 MMOL/LLAB, OSUPotassium3.2(L)3.5 - 5.1 MMOL/LLAB, WWIIKRAFDLX67(L)98 - 107 MMOL/LLAB, OSUComment:Please note: Triglyceride levels of 600mg/dL or higher may positively bias chloride results by approximately 2.1 mmolCALCIUM9.98.4 - 10.2 MG/DLLAB, OSUPROTEIN, TOTAL7.76.3 - 8.2 GM/DLLAB, OSUAlbumin4.33.5 - 5.0 G/dlLAB, OSUBILIRUBIN, TOTAL0.50.2 - 1.3 MG/DLLAB, ZOPOBR39(H)17 - 59 IU/LLAB, OSUALKALINE ZTCTDIHFHTD03491 - 126 IU/LLAB, OSUCARBON DIOXIDE (CO2)3022 - 30 MMOL/LLAB, OSUA/G Ratio1.31.3 - 2.2 RATIOLAB, YOOQJH57<50 IU/LLAB, OSUESTIMATED GFR, NON AMER>60ml/min/1.73sq.mLAB, OSUESTIMATED GFR, [...] / LateralityCollection Method / Volume Collection TimeReceived QwzxEvgbt78/13/2020 5:28 PM EST06/18/2020 5:29 PM EST Narrative Authorizing ProviderResult TypeResult StatusLevi K Webber MDCHEMISTRY ORDERABLES Final ResultPerforming OrganizationAddressCity/State/ZIP CodePhone Number LAB, [facility] [address] [place] [address] from Last 3 Months or Most Recently Relevant to Health Maintenance
--- OUTSIDE RECORDS SUMMARY | 2025-05-27 10:56 | XMS_ITS | Clinical Summary ---
Author Organization [facility] Address [address], [address] [place] [address] Care Team Providers Care Ordnance Mechanic Name Role Phone Terry Tillman APRN - NOE Primary Care Provi yajaira Allergies Active AllergyReactionsCriticalityNoted DateCommentsDust Mite Jtvcgta0007/14/2020 Short Ragweed Pollen Ext07/14/2020 Medications MedicationSigDispense QuantityRefillsLast [...] mouth daily10/11/2022ctive Active Problems ProblemNoted DateDiagnosed DateCardiac wpetbm8207/15/20207212Vbhfgik50/09/2021cute on chronic uvcjdfqxzseb87/09/2021Hepatitis C007/15/2020lcohol abuse07/15/2020 Chronic alcoholic hptguuthjqoq64/08/2021 Social History Tobacco UseTypesPacks/DayYears UsedDateSmoking Tobacco: Every [...] Date RecordedSex Assigned at BirthNot on fileLegal VcgFctt2608/16/2012 1:54 PM EST Gender IdentityNot on fileSexual OrientationNot on fileOccupationIndustryJob Start DateJob End DateunemployedNot on fileNot on fileNot on file Last Filed Vital Signs Vital SignReadingTime TakenCommentsBlood Naggrdtl384/8604 10:40 AM EDT Jcgdk07835/28/2023 10:40 AM HYSFlgzuphovnr50.1 ??C (98.8 ??F)07/15/2020 3:10 AM ESTRespiratory Mwem200707/15/2020 10:00 AM ESTOxygen Jvhmkrbham28%07/15/2020 8:00 AM ESTInhaled Oxygen Concentration--Klbepj25.1 kg (148 lb)11/01/2022 10:40 AM PSMTyzgdy190.8 cm (5' 10 )07/14/2020 7:00 PM ESTBody Mass Index21.24007/14/2020 7:00 PM EST Plan of Treatment Health MaintenanceDue DateLast DoneCommentsDepression Jkbtdr3204/19/1989 DTaP/Tdap/Td vaccine (1 - Tdap)1996Hepatitis B vaccine (1 of 3 - 19+ 3- dose series)1996Pneumococcal 0-49 years Vaccine (1 of 2 - PCV)1996 Hhrkrb9704/19/20175046Ateivcjlgij17/14/2022olorectal Cancer Wjbmya3804/19/2022FIT/FOBT: Average risk2022Fecal-DNA (Cologuard): Average risk2022 Sigmoidoscopy/CT gitjmphaalbz53/14/2022Flu vaccine (#1)5COVID-19 Vaccine (2 - season)5008/03/2021HIV uanfwrCprzgaoiz27/18/2013 Hepatitis C mxjqzyRsnguhoeulsz03/18/2013Hepatitis A vaccineAged OutNo longer eligible based on [...] SCREENRoutine 01/21/2013 4:13 PM EDT HEPATITIS PANEL, CERRQXrttqck37/18/2013 4:13 PM EDT from Last 3 Months or Most Recently Relevant to Health Maintenance Results * (ABNORMAL) Hepatitis Panel, Acute (01/21/2013 4:13 PM EDT)ComponentValueRef RangeTest MethodAnalysis TimePerformed AtPathologist SignatureHepatitis B Surface IiUGOOMXLQTEITO86/18/2013 9:40 PM EDTMHPN LABHepatitis C AbREACTIVE(A) NR01/21/2013 [...] RNA by PCR. Hep B Core Ab, PgSIYXHYGRCCVJAQ67/18/2013 10:06 PM EDTMHPN LABHep A IgM NOSJGBOLUCHIJ01/18/2013 10:06 PM EDTMHPN LABComment:Performed at [address] [id number] Specimen (Source) Anatomical Location / LateralityCollection Method / VolumeCollection Time Received Time01/21/2013 4:13 PM EDT01/21/2013 4:14 PM EDT Narrative Authorizing ProviderResult TypeResult StatusHaridas M Dasani MDIMMUNOLOGY ORDERABLESFinal ResultPerforming OrganizationAddressCity/State/ZIP CodePhone Number [facility] * HIV-1 and HIV-2 antibodies (01/21/2013 4:13 PM EDT)ComponentValueRef RangeTest MethodAnalysis TimePerformed AtPathologist SignatureHIV 1/2 Antibody SGUXZIYAPRVOB97/19/2013 12:46 AM EDTMHPN LABComment: ? Interpretation: ? The presence of antibody to HIV and its association with the potential infectivity, transmission or diagnosis of AIDS has not been established. Furthermore, a 'Non-Reactive' test result does not exclude the possibility of exposure to or infection with HIV. If the above test result is 'Reactive', the Laboratory will order the confirmatory test. Performed at [facility] [address] [place], [place] [id number] Specimen (Source)Anatomical Location / LateralityCollection Method / Volume Collection TimeReceived Time01/21/2013 4:13 PM EDT01/21/2013 4:14 PM EDT Narrative Authorizing ProviderResult TypeResult StatusDmitriy Milligan MDIMMUNOLOGY ORDERABLESFinal ResultPerforming OrganizationAddressCity/State/ZIP CodePhone Number [facility] from Last 3 Months or Most Recently Relevant to Health Maintenance Additional Health Concerns InfectionOnset DateLast JgfexscakSMOM73/08/202101/02/2021 Insurance Advance Directives * Full Code (Latest Code Status on File) Date ActivatedDate InactivatedComments1/02/2021 6:59 PM07/15/2020 1:44 PM * Full Code Date ActivatedDate InactivatedComments07/14/2020 6:55 PM07/14/2020 6:59 PM Care Teams Team MemberRelationshipSpecialtyStart DateEnd Date Terry Tillman APRN - NOE PCP - GeneralNurse Practitioner11/01/22
--- OUTSIDE RECORDS SUMMARY | 2025-05-27 10:57 | XMS_ITS | Clinical Summary ---
Author Organization [employer] tem Address [facility] [address] [place] [address] Care Team Providers Care Director Alliance Marketing Name Role Phone Terry Tillman HIRAM-INTERIOR DESIGN TEACHER Primary Care Provider [phone]- [phone] Allergies No known active allergies Medications MedicationSigDispense [...] Every DayCigarettes Smokeless Tobacco: FormerAlcohol UseStandard Drinks/WeekCommentsNot Qgtikegkc29 (1 standard drink = 0.6 oz pure alcohol)states he is no longer drinkingChildcare AnswerDate KhbolahmVyluhzhgzAbnkbfo11/12/2019EmploymentAnswerDate Recorded UffqjndeswShkkodg11/12/2019Purpose - LifeAnswerDate RecordedPurpose and direction in rhjcKonxcmu48/11/2021ex and Gender InformationValueDate Recorded Sex Assigned at BirthNot on fileLegal TlcCcix2202/09/2015 11:45 AM EDTGender IdentityNot on fileSexual OrientationNot on file Last Filed Vital Signs Vital SignReadingTime TakenCommentsBlood Igxzomls313/42482/ 2:50 PM EDT Elhni55204/19/2022 2:50 PM LLZKmdfatigyem33.8 ??C (98.3 ??F)01/22/2022 2:50 PM EDTRespiratory Efxn067001/22/2022 2:50 PM EDTOxygen Ooizrcognq93%01/22/2022 2:50 PM EDTInhaled Oxygen Concentration--Eyvyig80.6 kg (160 lb)01/22/2022 2:50 PM EDT Qyvamw148.8 cm (5' 10 )01/22/2022 2:50 PM EDTBody Mass Index22.9601/22/2022 2:50 PM EDT Plan of Treatment Health MaintenanceDue DateLast DoneCommentsDepression Kqbvvhotf20/14/1989Tobacco Dvyqbbfqm25/14/1989Adult BMI Yxxmvqovk12/14/1995DTaP,Tdap and Td Vaccines (1 - Tdap)1996COVID-19 Vaccine (2 - season)/ Influenza Mngwqeb0703/07/2025 Medical Devices Not on file Insurance Care Teams Team MemberRelationshipSpecialtyStart DateEnd Date Terry Tillman APRN-INTERIOR DESIGN TEACHER PCP - GeneralPrimary Care Avvrycnk29/22/22
--- OUTSIDE RECORDS SUMMARY | 2025-05-27 10:57 | XMS_ITS | Clinical Summary ---
Author Organization [facility] Address [address] [place] [address] Care Team Providers Care Funeral Location Manager Name Role Phone Terry Tillman MD Unavailable Candida Romero NP Unavailable [phone] Allergies No known active allergies Medications MedicationSigDispense [...] InformationValueDate RecordedSex Assigned at BirthNot on fileLegal KakYpfb8809/18/2022 8:28 PM EDTGender IdentityNot on file Sexual OrientationNot on file Last Filed Vital Signs Vital SignReadingTime TakenCommentsBlood Cyricnoi480/5401 12:00 PM EST Pulse--Temperature--Respiratory Rate--Oxygen Saturation--Inhaled Oxygen Concentration--Xbkdyg07 kg (150 lb)07/16/2023 9:57 AM LLIIsjtea907.8 cm (5' 10 ) 07/16/2023 9:57 AM ESTBody Mass Index21.52007/16/2023 9:57 AM EST Plan of Treatment Health MaintenanceDue DateLast DoneCommentsCT Sguwuzmlvbjg1977Colonoscopy 1977Colorectal Cancer Qlqttliyy1977FIT-DNA1977FIT1977 FOBT04/19/19772899Cntgpwfwazktv1977Diabetes: Retinopathy Zbcktrjyw69/14/1987 Diabetes: Urine Protein Vnwuixkfw22/14/1996Pneumococcal Vaccine: Pediatrics (0 to 5 Years) and At-Risk Patients (6 to 64 Years) (1 of 2 - PCV)1996 Diabetes: Hemoglobin A1C, 3COVID-19 Vaccine ( season)Influenza Vaccine (#1)2025 Procedures Procedure NamePriorityDate/TimeAssociated DiagnosisCommentsHEMOGLOBIN H1HEbwmzgj 06/23/2024 10:00 AM EST from Last 3 [...] Subscriber:SelfName:Rey Bolton Payer ID:Not on file Group ID:[id number] Type:Not on file Address: [facility] [id number] [place] [id number] Care Teams Team MemberRelationshipSpecialtyStart DateEnd Date Candida Romero NP [address] [place] [address] PCP - [facility]04/06/24 Terry Tillman MD [address] [place] [address] Referring PhysicianInternal Medicine07/16/23
--- NOTE | 2025-05-27 11:01 | US_ITS ---
The [address] [address] Patient Name: SEEMA BATES MRN: [id number] date: 1975 Sex: M Assigned Patient Location: US Current Patient Location: US Accession/Order Number: [id number] Exam Date: 05/27/2025 11:08 Report Date: 05/27/2025 13:08 At the request of: KATIA MELGOZA Procedure: US abdomen complete Ultrasound abdomen complete Reason for exam: Abdominal pain. FINDINGS: Grayscale and color Doppler images of the abdominal organs were obtained. FINDINGS: Visualized portion of the pancreas tissues no focal abnormality.. Visualized portions of the abdominal aorta appears normal in caliber. There is fatty infiltration of the liver. No mass. Hepatopedal flow is seen within the portal vein. Gallbladder demonstrates wall thickening without stones or sludge. CBD measures 7.2 mm. Right kidney measures 10.9 cm without focal abnormality. Left kidney measures 10.5 cm with a column of morena noted. Left renal cyst measuring 2.3 cm. Spleen appears unremarkable measuring 11.1 cm. No ascites. IVC is patent. US/US abdomen complete IMPRESSION: No acute process. Fatty infiltration of the liver. Gallbladder wall thickening possibly related to the fatty infiltration. No sludge or stones. Left renal cyst. Impression dictated by: Sin Shannon Jr., D.O. 05/27/2025 1:08 PM Dictation Location: [place] [address] Electronically authenticated by: [id number] Y Date: 05/27/2025 13:08
[2025-05-27 12:29] LABS: Alanine Aminotransferase 52 U/L (16-63); Albumin Globulin Ratio 0.8; Albumin Level 3.7 g/dL (3.4-5.0); Alkaline Phosphatase 97 U/L (46-116); Anion Gap 12.7; Aspartate Amino Transferase 44 U/L (15-37); Blood Urea Nitrogen 9.0 mg/dL (7.0-18.0); Calcium 9.2 mg/dL (8.5-10.1); Carbon Dioxide 31.0 mmol/L (21.0-32.0); Chloride 102 mmol/L (98-107); Cholesterol 174 mg/dL (<=200); Estimated GFR (African America >60 (>=60 mL/min/1.73m^2); Estimated GFR (Non-African Ame >60 (>=60 mL/min/1.73m^2); Globulin 4.4 g/dL; Glucose 126 mg/dL (74-106); HDL Cholesterol 82 mg/dL (40-60); Potassium 3.7 mmol/L (3.5-5.1); Sodium 142 mmol/L (136-145); Total Protein 8.1 g/dL (6.4-8.2); Triglycerides 86 mg/dL (<=150); VLDL CHOLESTEROL 17.2 mg/dL
[2025-05-27 12:54] LABS: Microalbum Creatinine Ratio Ur 37.4 mg/g (0.0-29.9)
[2025-05-27 13:04] LABS: Hematocrit 34.1 % (42.0-54.0); Hemoglobin 11.3 g/dL (14.0-18.0); Immature Granulocytes Abs Auto 0.05 10^3/uL (0.00-0.03); Immature Granulocytes Pct Auto 0.7 % (0.0-0.5); Lymphocytes Absolute Auto 2.0 10^3/uL (1.2-3.8); Mean Corpuscular HGB Conc 33.1 g/dL (29.9-35.2); Mean Corpuscular Hemoglobin 35.8 pg (25.9-34.0); Mean Corpuscular Volume 107.9 fL (80.0-94.0); Platelet Count 228 10^3/uL (150-450); Red Blood Count 3.16 10^6/uL (4.70-6.10); White Blood Count 7.6 10^3/uL (4.0-11.0)
== END 2025-05-27 10:47 | disposition home or self-care (01) ==
PROVIDERS: PCP Nurse Practitioner Primary Care; Visit Provider Nurse Practitioner Family
DX: R19.7 Diarrhea, unspecified (principal); R14.0 Abdominal distension (gaseous); R10.9 Unspecified abdominal pain; E11.9 Type 2 diabetes mellitus without complications; I10 Essential (primary) hypertension; K76.0 Fatty (change of) liver, not elsewhere classified; N28.1 Cyst of kidney, acquired
CPT/HCPCS: 36415; 76700; 80053; 80061; 82043; 82570; 85025

== ENCOUNTER 2025-06-26 20:44 | Emergency (ER) | payer MEDICAID, SELFPAY ==
[2025-06-26] VITALS (28 sets, daily range): BP systolic 84–105; BP diastolic 44–71; PULSE 95–116; TEMP 36.3; O2SAT 98–100; BMI 23.9
--- NOTE | 2025-06-26 20:53 | XR_ITS ---
The [address] [address] Patient Name: SEEMA BATES MRN: [id number] date: 1975 Sex: M Assigned Patient Location: ED.MAIN Current Patient Location: Accession/Order Number: [id number] Exam Date: 06/26/2025 21:00 Report Date: 06/27/2025 08:30 At the request of: TRISTAN COKER MD Procedure: XR foot LT min 3V LEFT FOOT - 3 views CLINICAL HISTORY: osteonecrosis heel COMPARISON: Left foot 02/29/2020 FINDINGS: No focal soft tissue abnormality. No acute bony process is seen. No plain film evidence of osteomyelitis. XR/XR foot LT min 3V IMPRESSION: NO ACUTE BONY PROCESS. Impression dictated by: Sin Shannon Jr. DLaOLa 06/27/2025 8:30 AM Dictation Location: [place] [address] Electronically authenticated by: [id number] Y Date: 06/27/2025 08:30
--- NOTE | 2025-06-26 20:53 | ED.GIBLEED1 ---
HPI - GI Bleed General Chief complaint: GI Bleed Stated complaint: Bloody stool Time Seen by Provider: 06/26/25 20:45 Source: patient Mode of arrival: ambulance History of Present Illness HPI Narrative: patient presents complaining of tarry stool for past 5 days. Also complains of abdominal pain. No history of vomiting. denies use of NSAIDs. states he does drink alcohol. states he drinks vodka. He avoids question on how much alcohol he dranks. has not eaten past 4-5 days due to poor appetite. also complains of bleeding from the plantar heel left foot. States ulcer present for 3 years and bleeding past 3-4 days. States he does not see anyone for his foot arrives via [facility] Related Data Home Medications ?Medication ?Instructions ?Recorded ?Confirmed lisinopril 20 mg tablet 20 mg PO DAILY 06/27/25 06/29/25 acamprosate 333 mg tablet,delayed 333 mg PO Q8H 06/29/25 06/29/25 release albuterol sulfate 90 mcg/actuation 2 puff inhalation Q6H 06/29/25 06/29/25 aerosol inhaler buprenorphine 8 mg-naloxone 2 mg 2 film buccal Q24H 06/29/25 06/29/25 sublingual film clonidine HCl 0.1 mg tablet 0.1 mg PO BEDTIME 06/29/25 06/29/25 glipizide 5 mg tablet 5 mg PO BID 06/29/25 06/29/25 Allergies Allergy/AdvReac Type Severity Reaction Status Date / Time No Known Drug Allergies Allergy Verified 06/26/25 20:50 Review of Systems ROS Status of ROS 10 or more systems reviewed and unremarkable except as noted in history and below PFSH PFSH Social History Little interest or pleasure in doing things: not at all Feeling down, depressed, or hopeless: not at all Exam Constitutional Vital Signs, click to edit/add: Last Vital Signs Temp 97.4 F L 06/26/25 20:46 Pulse 95 H 06/26/25 23:17 Resp 18 06/26/25 23:17 BP 107/66 06/27/25 01:30 Pulse Ox 100 06/27/25 01:30 O2 Del Method Room Air 06/26/25 20:46 Common normals: no apparent distress, average body habitus, oriented x3, no limitations, healthy appearing, alert and well nourished [facility] Common normals: normocephalic and head/scalp atraumatic Eye Common normals: EOMs intact bilaterally and conjunctivae normal Respiratory Common normals: normal respiratory effort, no retractions, no use of accessory muscles and clear to auscultation bilaterally Cardio Common normals: regular rate, regular rhythm, S1 normal heart sound and S2 normal heart sound GI Common normals: Normal to inspection, nondistended, normoactive bowel sounds present and soft to palpation Other: mod epigastric tenderness Other: rectal exam with liquid tarry solution. no stool Extremity Common normals: full ROM Other: has small ulcer left plantar heel. measures about 5mm. has blood in the wound. No swelling, erythema or tenderness. No red streaks Neuro Common normals: oriented x3, CN's II-XII intact bilaterally, moves all extremities and no focal motor deficits Psych Appearance: grossly normal Course Vital Signs Vital signs: Vital Signs Temperature 97.4 F L 06/26/25 20:46 Pulse Rate 116 H 06/26/25 20:46 Respiratory Rate 18 06/26/25 20:46 Blood Pressure 95/68 06/26/25 20:46 Pulse Oximetry 98 06/26/25 20:46 Oxygen Delivery Method Room Air 06/26/25 20:46 Temperature 97.4 F L 06/26/25 20:46 Pulse Rate 95 H 06/26/25 23:17 Respiratory Rate 18 06/26/25 23:17 Blood Pressure 107/66 06/27/25 01:30 Pulse Oximetry 100 06/27/25 01:30 Oxygen Delivery Method Room Air 06/26/25 20:46 MDM - GI Bleed MDM Narrative Medical decision making narrative: patients presents complaining of tarry stools for past 5 days. Has chronic ulcer left plantar heel per history that started bleeding some today also. he is an alcoholic . ETOH 431. He is very much awake and alert. Denies alcohol withdrawal. Just recently seen by PCP and labs ordered. Has an small ulcer plantar heel left foot with mild blood present but no finding to support infection. xray of the foot unremarkable per my preliminary review. His H/H is stable at this time at 14.5/41.[address] 71. INR is normal. He does have HANSEL with creat 1.48. Creat last month was 0.61. CT abdomen pending. he is hypotensive with BP 98/65 and tachycardic at 116. IV NS infusing rectal exam with tarry solution without stool. Protonix drip ordered after he received protonix [address] with finding of 3x2.9 cm indeterminate left renal lesion. Still waiting for GI to call back from [facility]. 1.5 hours or longer since paged. Patient is now stating he does not want to go to [facility]. That he wants to go home patient is AxOx3. no outward signs of alcohol intoxication. If not for the blood test you would never know he was intoxicated. he is informed of risk of going home including dying. States he wants to eat. Informed he can't because he will need endoscopy to look for source of bleeding. States he still want to go home and if something happens it is not our fault. Patient signed out AMA. provided a prescription for protonix and advised to return if he changes his mind. Patient did call his father , whom he lives with, to come and get him Lab Data Labs: Lab Results 06/26/25 06/26/25 06/27/25 Range/Units 21:00 21:19 00:50 WBC 13.6 H (4.0-11.0) 10^3/uL RBC 3.94 L (4.70-6.10) 10^6/uL Hgb 14.5 (14.0-18.0) g/dL Hct 41.6 L (42.0-54.0) % MCV 105.6 H (80.0-94.0) fL MCH 36.8 H (25.9-34.0) pg MCHC 34.9 (29.9-35.2) g/dL RDW 14.1 (11.0-15.0) % Plt Count 71 L (150-450) 10^3/uL MPV 10.0 (9.5-13.5) fL Neut % (Auto) 83.2 H (43.0-75.0) % Lymph % (Auto) 8.8 L (20.5-60.0) % [place] % (Auto) 6.6 (1.7-12.0) % Eos % (Auto) 0.1 L (0.9-7.0) % Baso % (Auto) 0.9 (0.2-2.0) % Neut # (Auto) 11.3 H (1.4-6.5) 10^3/uL Lymph # (Auto) 1.2 (1.2-3.8) 10^3/uL [place] # (Auto) 0.9 H (0.3-0.8) 10^3/uL Eos # (Auto) 0.0 (0.0-0.7) 10^3/uL Baso # (Auto) 0.1 (0.0-0.1) 10^3/uL Abs Immat Gran (auto) 0.06 H (0.00-0.03) 10^3/uL Imm/Tot Granulo (auto) 0.4 (0.0-0.5) % ESR 27 H (<=15) mm/hr PT 11.0 (9.0-11.6) sec INR 1.05 APTT 27.7 (22.3-36.2) sec Sodium 143 (136-145) mmol/L Potassium 3.6 (3.5-5.1) mmol/L Chloride 98 (98-107) mmol/L Carbon Dioxide 13.6 L (21.0-32.0) mmol/L Anion Gap 35.0 BUN 25.0 H (7.0-18.0) mg/dL Creatinine 1.48 H (0.70-1.30) mg/dL Est GFR ( Amer) >60 (>=60 mL/min/1.73m^2) Est GFR (Non-Af Amer) 51 L (>=60 mL/min/1.73m^2) BUN/Creatinine Ratio 16.9 Glucose 134 H (74-106) mg/dL Lactate 3.9 H* 3.2 H* (0.4-2.0) mmol/L Calcium 9.4 (8.5-10.1) mg/dL Total Bilirubin 1.3 H (0.2-1.0) mg/dL AST 163 H (15-37) U/L ALT 84 H (16-63) U/L Alkaline Phosphatase 87 (46-116) U/L Troponin I High Sens 10.7 (4.0-76.1) pg/mL C-Reactive Protein <0.50 (<=0.50) mg/dL Total Protein 8.8 H (6.4-8.2) g/dL Albumin 4.8 (3.4-5.0) g/dL Globulin 4.0 g/dL Albumin/Globulin Ratio 1.2 Stool Occult Blood Positive A Ethanol Quant 431 mg/dL Discharge Plan Discharge Stand Alone Forms: Portal Instructions Chief Complaint: GI Bleed Clinical Impression: Acute upper GI bleed, Alcohol abuse, Alcohol-induced thrombocytopenia, Hypotension, Ulcer of left foot Patient Disposition: Left Against Medical Advice Prescriptions / Home Meds: No Action acamprosate 333 mg tablet,delayed release (DR/EC) 333 mg PO Q8H albuterol sulfate 90 mcg/actuation HFA aerosol inhaler 2 puff INHALATION Q6H buprenorphine-naloxone 8-2 mg film 2 film buccal Q24H clonidine HCl 0.1 mg tablet 0.1 mg PO BEDTIME glipizide 5 mg tablet 5 mg PO BID lisinopril 20 mg tablet 20 mg PO DAILY Print Language: Kinyarwanda Referrals: KATIA MELGOZA [Primary Care Provider, Unknown] - 1 week Discharge Date/Time: 06/27/25 02:06
--- OUTSIDE RECORDS SUMMARY | 2025-06-26 21:02 | XMS_ITS | Clinical Summary ---
Author Organization [facility] Address [address] [place] [address] Care Team Providers Care Ordnance Engineer Name Role Phone Unavailable Primary Care Provider Unavailabl e Allergies No known active allergies Medications MedicationSigDispense QuantityRefillsLast FilledStart DateEnd DateStatus amlodipine-benazepril 5-10 MG capsule 06/18/2020Active buprenorphine 8 mg/naloxone 2 mg SL film dissolve 1 and 1/2 FILMS under the tongue once daily06/08/2020Active buPROPion 150 MG tablet XL 06/18/2020Active albuterol (2.5 MG/3ML) 0.083% inhalation solution INHALE 1 (ONE) vial via NEBULIZER EVERY 4 HOURS UKAMGV0606/06/2020Active D 5000 125 MCG (5000 UT) per tablet Take 5,000 Units by mouth daily.06/01/2020Active cloNIDine 0.2 MG tablet Take 0.2 mg by mouth 3 times daily as needed.05/20/2020Active docosanol 10 % Cream cream APPLY TO THE AFFECTED AREA(S) ZVXGZYXM94/06/2020Active fluticasone 50 MCG/ACT Suspension nasal spray instill [...] InformationValueDate RecordedSex Assigned at BirthNot on fileLegal QkcGxvx21/13/2020 4:07 PM ESTGender IdentityNot on file Sexual OrientationNot on file Last Filed Vital Signs Vital SignReadingTime TakenCommentsBlood Mjhkwmxz321/6906/18/2020 7:02 PM EST Zvikc270806/18/2020 7:02 PM TQKEsvqnzitfhe69.2 ??C (97.1 ??F)06/18/2020 4:22 PM ESTRespiratory Pjke894408/19/2019 7:02 PM ESTOxygen Ibgilooqrh24%06/18/2020 7:02 PM ESTInhaled Oxygen Concentration--Weight--Height--Body Mass Index-- Plan of Treatment Health MaintenanceDue DateLast DoneCommentsHEPATITIS C VIRUS YLRHGDDHK1977 JDLFCZG4804/19/1977HIV SCREENING OSIZEDELER62/14/1992HEP B VACCINE (1 of 3 - 19+ 3-dose series)1996TDAP (ADULT)1996LIPID ZDGHWFGWV35/14/2017 COLORECTAL CANCER SCREENING FDAMRLGSTA41/14/2022COVID-19 VACCINE ( - 2024- season)2025INFLUENZA VACCINE (#1)03/07/20251782TEEBQBYPSZztpytczthld46/13/2020 PNEUMOCOCCAL VACCINE SERIESAged OutNo longer eligible based on patient's age to complete this topic Procedures Procedure NamePriorityDate/TimeAssociated DiagnosisCommentsCOMPREHENSIVE METABOLIC XHWFZYTTS20/13/2020 5:28 PM EST from Last 3 Months or Most Recently Relevant to Health Maintenance Results * (ABNORMAL) COMPREHENSIVE METABOLIC PANEL (06/18/2020 5:28 PM EST)Component ValueRef RangeTest MethodAnalysis TimePerformed AtPathologist SignatureGlucose 128(H)70 - 100 MG/DLLAB, OSUComment: NORMAL <100 mg/dL PREDIABETES 101-126 mg/dL DIABETES 126 mg/dL or higher BUN77 - 20 MG/DLLAB, OSUCREATININE SERUM0.64(L)0.7 - 1.2 MG/DLLAB, HRALPIVIG002 137 - 145 MMOL/LLAB, OSUPotassium3.2(L)3.5 - 5.1 MMOL/LLAB, DMWANLEGFGL60(L)98 - 107 MMOL/LLAB, OSUComment:Please note: Triglyceride levels of 600mg/dL or higher may positively bias chloride results by approximately 2.1 mmolCALCIUM9.98.4 - 10.2 MG/DLLAB, OSUPROTEIN, TOTAL7.76.3 - 8.2 GM/DLLAB, OSUAlbumin4.33.5 - 5.0 G/dlLAB, OSUBILIRUBIN, TOTAL0.50.2 - 1.3 MG/DLLAB, XDGHDV93(H)17 - 59 IU/LLAB, OSUALKALINE NQCSTCEHIUV13041 - 126 IU/LLAB, OSUCARBON DIOXIDE (CO2)3022 - 30 MMOL/LLAB, OSUA/G Ratio1.31.3 - 2.2 RATIOLAB, HIVLIF81<50 IU/LLAB, OSUESTIMATED GFR, NON AMER>60ml/min/1.73sq.mLAB, OSUESTIMATED GFR, [...] / LateralityCollection Method / Volume Collection TimeReceived QicfUqfxj73/13/2020 5:28 PM EST06/18/2020 5:29 PM EST Narrative Authorizing ProviderResult TypeResult StatusLevi K Webber MDCHEMISTRY ORDERABLES Final ResultPerforming OrganizationAddressCity/State/ZIP CodePhone Number LAB, [facility] [address] [place] [address] from Last 3 Months or Most Recently Relevant to Health Maintenance
--- OUTSIDE RECORDS SUMMARY | 2025-06-26 21:02 | XMS_ITS | Clinical Summary ---
Author Organization [facility] Address [address], [address] [place] [address] Care Team Providers Care Manager Knowledge Name Role Phone Terry Tillman APRN - NOE Primary Care Provi yajaira Allergies Active AllergyReactionsCriticalityNoted DateCommentsDust Mite Aqzrggw3607/14/2020 Short Ragweed Pollen Ext07/14/2020 Medications MedicationSigDispense QuantityRefillsLast [...] mouth daily10/11/2022ctive Active Problems ProblemNoted DateDiagnosed DateCardiac rlpreq6107/15/20209536Wacfnbc23/09/2021cute on chronic ejzcovpzwvhz08/09/2021Hepatitis C007/15/2020lcohol abuse07/15/2020 Chronic alcoholic rpmwvtlwapfw92/08/2021 Social History Tobacco UseTypesPacks/DayYears UsedDateSmoking Tobacco: Every [...] Date RecordedSex Assigned at BirthNot on fileLegal AlmKgqo0208/16/2012 1:54 PM EST Gender IdentityNot on fileSexual OrientationNot on fileOccupationIndustryJob Start DateJob End DateunemployedNot on fileNot on fileNot on file Last Filed Vital Signs Vital SignReadingTime TakenCommentsBlood Atxljqoq278/8604 10:40 AM EDT Hplkn76279/28/2023 10:40 AM GCQKgopbvthjmf52.1 ??C (98.8 ??F)07/15/2020 3:10 AM ESTRespiratory Smxj151507/15/2020 10:00 AM ESTOxygen Mhuntbynha92%07/15/2020 8:00 AM ESTInhaled Oxygen Concentration--Auiehl62.1 kg (148 lb)11/01/2022 10:40 AM HJKRmskrv162.8 cm (5' 10 )07/14/2020 7:00 PM ESTBody Mass Index21.24007/14/2020 7:00 PM EST Plan of Treatment Health MaintenanceDue DateLast DoneCommentsDepression Bqshop2404/19/1989 DTaP/Tdap/Td vaccine (1 - Tdap)1996Hepatitis B vaccine (1 of 3 - 19+ 3- dose series)1996Pneumococcal 0-49 years Vaccine (1 of 2 - PCV)1996 Gmwbch0204/19/20172243Azstnbaedst30/14/2022olorectal Cancer Yiydon9004/19/2022FIT/FOBT: Average risk2022Fecal-DNA (Cologuard): Average risk2022 Sigmoidoscopy/CT npnclcbamkgd80/14/2022Flu vaccine (#1)5COVID-19 Vaccine (2 - season)5008/03/2021HIV hzhbhqBdnvdgogb52/18/2013 Hepatitis C actnjiMusqucnwgadh18/18/2013Hepatitis A vaccineAged OutNo longer eligible based on [...] SCREENRoutine 01/21/2013 4:13 PM EDT HEPATITIS PANEL, TZGEDVukehra67/18/2013 4:13 PM EDT from Last 3 Months or Most Recently Relevant to Health Maintenance Results * (ABNORMAL) Hepatitis Panel, Acute (01/21/2013 4:13 PM EDT)ComponentValueRef RangeTest MethodAnalysis TimePerformed AtPathologist SignatureHepatitis B Surface BnFRODUGVEZWPSW73/18/2013 9:40 PM EDTMHPN LABHepatitis C AbREACTIVE(A) NR01/21/2013 [...] RNA by PCR. Hep B Core Ab, OnFEAXCTPWYZYPKY31/18/2013 10:06 PM EDTMHPN LABHep A IgM TKPLQHDJNKVFO66/18/2013 10:06 PM EDTMHPN LABComment:Performed at [address] [id number] Specimen (Source) Anatomical Location / LateralityCollection Method / VolumeCollection Time Received Time01/21/2013 4:13 PM EDT01/21/2013 4:14 PM EDT Narrative Authorizing ProviderResult TypeResult StatusHaridas M Dasani MDIMMUNOLOGY ORDERABLESFinal ResultPerforming OrganizationAddressCity/State/ZIP CodePhone Number [facility] * HIV-1 and HIV-2 antibodies (01/21/2013 4:13 PM EDT)ComponentValueRef RangeTest MethodAnalysis TimePerformed AtPathologist SignatureHIV 1/2 Antibody VNWDUPTZYBMTQ89/19/2013 12:46 AM EDTMHPN LABComment: ? Interpretation: ? The presence of antibody to HIV and its association with the potential infectivity, transmission or diagnosis of AIDS has not been established. Furthermore, a 'Non-Reactive' test result does not exclude the possibility of exposure to or infection with HIV. If the above test result is 'Reactive', the Laboratory will order the confirmatory test. Performed at [facility] [address] [place], [place] [id number] Specimen (Source)Anatomical Location / LateralityCollection Method / Volume Collection TimeReceived Time01/21/2013 4:13 PM EDT01/21/2013 4:14 PM EDT Narrative Authorizing ProviderResult TypeResult StatusDmitriy Milligan MDIMMUNOLOGY ORDERABLESFinal ResultPerforming OrganizationAddressCity/State/ZIP CodePhone Number [facility] from Last 3 Months or Most Recently Relevant to Health Maintenance Additional Health Concerns InfectionOnset DateLast IflpegspzFDVP43/08/202101/02/2021 Insurance Advance Directives * Full Code (Latest Code Status on File) Date ActivatedDate InactivatedComments1/02/2021 6:59 PM07/15/2020 1:44 PM * Full Code Date ActivatedDate InactivatedComments07/14/2020 6:55 PM07/14/2020 6:59 PM Care Teams Team MemberRelationshipSpecialtyStart DateEnd Date Terry Tillman APRN - NOE PCP - GeneralNurse Practitioner11/01/22
--- OUTSIDE RECORDS SUMMARY | 2025-06-26 21:02 | XMS_ITS | Clinical Summary ---
Author Organization [facility] Address [address] [place] [address] Care Team Providers Care Sustainability Project Coordinator Name Role Phone Terry Tillman MD Unavailable Candida Romero NP Unavailable [phone] Allergies No known active allergies Medications MedicationSigDispense [...] InformationValueDate RecordedSex Assigned at BirthNot on fileLegal UiwOvqj9609/18/2022 8:28 PM EDTGender IdentityNot on file Sexual OrientationNot on file Last Filed Vital Signs Vital SignReadingTime TakenCommentsBlood Iyaopzbd369/5401 12:00 PM EST Pulse--Temperature--Respiratory Rate--Oxygen Saturation--Inhaled Oxygen Concentration--Bgqrma76 kg (150 lb)07/16/2023 9:57 AM ITTXjhbjw341.8 cm (5' 10 ) 07/16/2023 9:57 AM ESTBody Mass Index21.52007/16/2023 9:57 AM EST Plan of Treatment Health MaintenanceDue DateLast DoneCommentsCT Ewkqzvidaadq1977Colonoscopy 1977Colorectal Cancer Phwgrqlmg1977FIT-DNA1977FIT1977 FOBT04/19/19776605Qyjuinmcwknid1977Diabetes: Retinopathy Tpvugkyyo90/14/1987 Diabetes: Urine Protein Tekgqzsss83/14/1996Pneumococcal Vaccine: Pediatrics (0 to 5 Years) and At-Risk Patients (6 to 64 Years) (1 of 2 - PCV)1996 Diabetes: Hemoglobin A1C, 3COVID-19 Vaccine ( season)Influenza Vaccine (#1)2025 Procedures Procedure NamePriorityDate/TimeAssociated DiagnosisCommentsHEMOGLOBIN I5QGujegco 06/23/2024 10:00 AM EST from Last 3 [...] Subscriber:SelfName:Rey Bolton Payer ID:Not on file Group ID:[id number] Type:Not on file Address: [facility] [address] [place] [id number] Care Teams Team MemberRelationshipSpecialtyStart DateEnd Date Candida Romero NP [address] [place] [address] PCP - [facility]04/06/24 Terry Tillman MD [address] [place] [address] Referring PhysicianInternal Medicine07/16/23
--- OUTSIDE RECORDS SUMMARY | 2025-06-26 21:02 | XMS_ITS | Clinical Summary ---
Author Organization Ratio tem Address [id number] [address] [place] [address] Care Team Providers Care Action Installer Name Role Phone Terry Tillman HIRAM-MANAGER PROPOSAL Primary Care Provider [phone] Allergies No known active allergies Medications MedicationSigDispense [...] Every DayCigarettes Smokeless Tobacco: FormerAlcohol UseStandard Drinks/WeekCommentsNot Caqzvsswg28 (1 standard drink = 0.6 oz pure alcohol)states he is no longer drinkingChildcare AnswerDate XuwmoiuoJfckmazycXtkqexs45/12/2019EmploymentAnswerDate Recorded CjktglmxnfUlsjgme32/12/2019Purpose - LifeAnswerDate RecordedPurpose and direction in yfakQlsvhgx53/11/2021ex and Gender InformationValueDate Recorded Sex Assigned at BirthNot on fileLegal GzzSzgr0702/09/2015 11:45 AM EDTGender IdentityNot on fileSexual OrientationNot on file Last Filed Vital Signs Vital SignReadingTime TakenCommentsBlood Tgfivayd564/60145/ 2:50 PM EDT Djize78434/19/2022 2:50 PM ORDWcyofyhnoyd91.8 ??C (98.3 ??F)01/22/2022 2:50 PM EDTRespiratory Ivqr368101/22/2022 2:50 PM EDTOxygen Khjcybwieh38%01/22/2022 2:50 PM EDTInhaled Oxygen Concentration--Btzruv47.6 kg (160 lb)01/22/2022 2:50 PM EDT Mtsjco197.8 cm (5' 10 )01/22/2022 2:50 PM EDTBody Mass Index22.9601/22/2022 2:50 PM EDT Plan of Treatment Health MaintenanceDue DateLast DoneCommentsDepression Zyzhtjazd16/14/1989Tobacco Mjibiwneb97/14/1989Adult BMI Niibdaobn46/14/1995DTaP,Tdap and Td Vaccines (1 - Tdap)1996COVID-19 Vaccine (2 - season)/ Influenza Aavtdoj4203/07/2025 Medical Devices Not on file Insurance Care Teams Team MemberRelationshipSpecialtyStart DateEnd Date Terry Tillman APRN-MANAGER PROPOSAL PCP - GeneralPrimary Care Uegdfjld69/22/22
[2025-06-26 21:32] LABS: Hematocrit 41.6 % (42.0-54.0); Hemoglobin 14.5 g/dL (14.0-18.0); Immature Granulocytes Abs Auto 0.06 10^3/uL (0.00-0.03); Immature Granulocytes Pct Auto 0.4 % (0.0-0.5); Lymphocytes Absolute Auto 1.2 10^3/uL (1.2-3.8); Mean Corpuscular HGB Conc 34.9 g/dL (29.9-35.2); Mean Corpuscular Hemoglobin 36.8 pg (25.9-34.0); Platelet Count 71 10^3/uL (150-450); Red Blood Count 3.94 10^6/uL (4.70-6.10); White Blood Count 13.6 10^3/uL (4.0-11.0)
[2025-06-26] MEDS: 0.9 % SODIUM CHLORIDE 1,000 ML 999 ML IV ×2 (21:32→23:15)
[2025-06-26] MEDS: PANTOPRAZOLE SODIUM 40 MG VIAL IV (21:32)
[2025-06-26] MEDS: PANTOPRAZOLE SODIUM 80 MG in 0.9 % SODIUM CHLORIDE 100 ML 10 MG IV (21:42)
[2025-06-26 21:45] LABS: INR 1.05; Partial Thromboplastin Time 27.7 sec (22.3-36.2); Prothrombin Time 11.0 sec (9.0-11.6)
[2025-06-26 21:46] LABS: Mean Corpuscular Volume 105.6 fL (80.0-94.0)
[2025-06-26 21:56] LABS: Alanine Aminotransferase 84 U/L (16-63); Albumin Globulin Ratio 1.2; Albumin Level 4.8 g/dL (3.4-5.0); Alkaline Phosphatase 87 U/L (46-116); Anion Gap 35.0; Aspartate Amino Transferase 163 U/L (15-37); Blood Urea Nitrogen 25.0 mg/dL (7.0-18.0); Calcium 9.4 mg/dL (8.5-10.1); Carbon Dioxide 13.6 mmol/L (21.0-32.0); Chloride 98 mmol/L (98-107); Estimated GFR (African America >60 (>=60 mL/min/1.73m^2); Estimated GFR (Non-African Ame 51 (>=60 mL/min/1.73m^2); Globulin 4.0 g/dL; Glucose 134 mg/dL (74-106); Potassium 3.6 mmol/L (3.5-5.1); Sodium 143 mmol/L (136-145); Total Protein 8.8 g/dL (6.4-8.2)
[2025-06-26 21:58] LABS: Lactate/Lactic Acid 3.9 mmol/L (0.4-2.0)
--- NOTE | 2025-06-26 22:01 | PC.NURSE ---
lab called with a critical lactic=3.9, Dr Joseph informed of this
--- NOTE | 2025-06-26 22:56 | PC.NURSE ---
the patient's father is leaving now and this patient is aware of the repeat blood draw at 00:30. this patient voices no other concerns, needs and shows no signs of distress
[2025-06-27] VITALS (12 sets, daily range): BP systolic 91–115; BP diastolic 47–66; O2SAT 98–100
[2025-06-27 01:17] LABS: Lactate/Lactic Acid 3.2 mmol/L (0.4-2.0)
--- NOTE | 2025-06-27 01:19 | PC.NURSE ---
lab called with a critical lactic =3.2, Dr Joseph is aware of this
--- NOTE | 2025-06-27 02:08 | PC.NURSE ---
this patient signed a AMA form and I called his father to come and pick him up, per this patient request. i did give this patient 1 Rx and this patient voices yes to understanding this Rx.
== END 2025-06-27 02:06 | disposition left against medical advice (07) ==
PROVIDERS: Emergency Provider Internal Medicine; PCP Nurse Practitioner Family
DX: K92.2 Gastrointestinal hemorrhage, unspecified (principal); Z53.29 Procedure and treatment not carried out because of patient's decision for other reasons; L97.429 Non-pressure chronic ulcer of left heel and midfoot with unspecified severity; Y90.8 Blood alcohol level of 240 mg/100 ml or more; N28.9 Disorder of kidney and ureter, unspecified; F10.288 Alcohol dependence with other alcohol-induced disorder; I95.9 Hypotension, unspecified; D69.6 Thrombocytopenia, unspecified
CPT/HCPCS: 36415; 73630; 74176; 80053; 80320; 83605; 84484; 85025; 85610; 85652; 85730; 86140; 96361; 96374; 99285; G0328

== ENCOUNTER 2025-06-29 10:56 | Emergency (ER) | payer MEDICAID, SELFPAY ==
--- OUTSIDE RECORDS SUMMARY | 2024-05-13 04:20 | XMS_ITS ---
Author Organization [facility] Address [address] [place] [address] Care Team Providers Care Motorsports Technician Name Role Phone Dr. Sin Mahmood Primary Care Provider REASON FOR VISIT DELIVERY Encounters Encounter Location Date Provider Diagnosis [facility] [address] [place] [address] 05/13/2024 Sin Mahmood Plan Of Treatment No Information Progress Notes * JACQUIE BATESOB:1975 (50 yo M)Acc No.[id number]:05/13/2024 Dental Appointment Patient: REYNALDO BELLWN :Wen Mahmood DDSDOB:1975???Age:49 Y???Sex: MaleDate:05/13/2024hone:[phone]:[address] [place], [place] [address] Subjective: * Chief Complaints: * D ELIVERY * Electronic signature of Dr. Sin Mahmood , DMD, [id number] on 06/29/2025 at 11:21 AM ESTSign off status: Pending * Provider: Divine Mahmood DDS Date: 07/13/2023 Generated for Printing/Faxing/eTransmitting on:?06/29/2025 11:21 AM EST
--- OUTSIDE RECORDS SUMMARY | 2024-10-01 09:00 | XMS_ITS ---
Author Organization [facility] Address [address] [place] [address] Care Team Providers Care Technical Data Analyst Name Role Phone Dr. Sin Mahmood Primary Care Provider [phone] REASON FOR VISIT DELIVERY Encounters Encounter Location Date Provider Diagnosis [facility] Services [address] [place] [address] 10/01/2024 Sin Mahmood Plan Of Treatment No Information Progress Notes * JACQUIE BATESOB:1975 (50 yo M)Acc No.[id number]:10/01/2024 Dental Appointment Patient: REYNALDO BELLWN :Wen Mahmood DDSDOB:1975???Age:49 Y???Sex: MaleDate:10/01/2024Phone:[phone]:[address] [place], [place] [address] Subjective: * Chief Complaints: * D ELIVERY * Electronic signature of Dr. Sin Mahmood , DMD, [id number] on 06/29/2025 at 11:21 AM ESTSign off status: Pending * Provider: Divine Mahmood DDS Date: 10/01/2024 Generated for Printing/Faxing/eTransmitting on:?06/29/2025 11:21 AM EST
--- OUTSIDE RECORDS SUMMARY | 2024-10-25 06:55 | XMS_ITS ---
Author Organization [facility] Address [address] [facility] [place] [address] Care Team Providers Care Geology Scientist Name Role Phone Dr. Sin Mahmood Primary Care Provider [phone] REASON FOR VISIT DELIVERY Encounters Encounter Location Date Provider Diagnosis [facility] [address] [facility] [place] [address] 10/25/2024 Sin Mahmood Plan Of Treatment No Information Progress Notes * JACQUIE BATESOB:1975 (50 yo M)Acc No.[id number]:10/25/2024 Dental Appointment Patient: REYNALDO BELLWN :Wen Mahmood DDSDOB:1975???Age:49 Y???Sex: MaleDate:10/25/2024Phone:[phone]:[address] [place] [address] Subjective: * Chief Complaints: * D ELIVERY * Electronic signature of Dr. Sin Mahmood , DMD, [id number] on 06/29/2025 at 11:21 AM ESTSign off status: Pending * Provider: Divine Mahmood DDS Date: 0 10/25/2024 Generated for Printing/Faxing/eTransmitting on:?06/29/2025 11:21 AM EST
--- OUTSIDE RECORDS SUMMARY | 2024-11-01 06:20 | XMS_ITS ---
Author Organization [facility] Address [address] [place] [address] Care Team Providers Care Hydrochloric Acid Operator Name Role Phone Dr. Sin Mahmood Primary Care Provider REASON FOR VISIT DELIVERY Encounters Encounter Location Date Provider Diagnosis [facility] [address] [place] [address] 11/01/2024 Sin Mahmood Plan Of Treatment No Information Progress Notes * JACQUIE BATESOB:1975 (50 yo M)Acc No.[id number]:11/01/2024 Dental Appointment Patient: REYNALDO BELLWN :Wen Mahmood DDSDOB:1975???Age:49 Y???Sex: MaleDate:11/01/2024Phone:[phone]:[address] [place] [address] Subjective: * Chief Complaints: * D ELIVERY * Electronic signature of Dr. Sin Mahmood , DMD, [id number] on 06/29/2025 at 11:22 AM ESTSign off status: Pending * Provider: Divine Mahmood DDS Date: 0 11/01/2024 Generated for Printing/Faxing/eTransmitting on:?06/29/2025 11:22 AM EST
--- OUTSIDE RECORDS SUMMARY | 2024-11-02 07:00 | XMS_ITS ---
Author Organization [facility] Address [address] [place] [address] Care Team Providers Care Speech Therapist Early Intervention Name Role Phone Dr. Sin Mahmood Primary Care Provider [phone] REASON FOR VISIT DELIVERY Encounters Encounter Location Date Provider Diagnosis [facility] [address] [place] [address] 11/02/2024 iSn Mahmood Plan Of Treatment No Information Progress Notes * JACQUIE BATESOB:1975 (50 yo M)Acc No.[id number]:11/02/2024 Dental Appointment Patient: REYNALDO BELLWN :Wen Mahmood DDSDOB:1975???Age:49 Y???Sex: MaleDate:11/02/2024Phone:[phone]:[address] [place], [place] [address] Subjective: * Chief Complaints: * D ELIVERY * Electronic signature of Dr. Sin Mahmood , DMD, [id number] on 06/29/2025 at 11:21 AM ESTSign off status: Pending * Provider: Divine Mahmood DDS Date: 0 11/02/2024 Generated for Printing/Faxing/eTransmitting on:?06/29/2025 11:21 AM EST
--- OUTSIDE RECORDS SUMMARY | 2024-12-03 06:20 | XMS_ITS ---
Author Organization [facility] Address [address] [facility] [place] [address] Care Team Providers Care Fiber Analyst Name Role Phone Dr. Sin Mahmood Primary Care Provider REASON FOR VISIT ADJUSTMENT Encounters Encounter Location Date Provider Diagnosis [facility] [address] [facility] [place] [address] 12/03/2024 iSn Mahmood Plan Of Treatment No Information Progress Notes * JACQUIE BATESOB:1975 (50 yo M)Acc No.[id number]:12/03/2024 Dental Appointment Patient: REYNALDO BELLWN :Wen Mahmood DDSDOB:1975???Age:49 Y???Sex: MaleDate:12/03/2024Phone:[phone]:[address] [place], [place] [address] Subjective: * Chief Complaints: * A DJUSTMENT * Electronic signature of Dr. Sin Mahmood , [facility], [id number] on 06/29/2025 at 11:21 AM ESTSign off status: Pending * Provider: Divine Mahmood DDS Date: 0 12/03/2024 Generated for Printing/Faxing/eTransmitting on:?06/29/2025 11:21 AM EST
[2025-06-29 11:04] VITALS: BP 98/55; PULSE 118; TEMP 36.5; O2SAT 100; BMI 21.5
[2025-06-29 11:13] VITALS: O2SAT 100
[2025-06-29 11:15] VITALS: BP 102/67; PULSE 105; O2SAT 100
--- NOTE | 2025-06-29 11:16 | ECG_ITS ---
[facility] Test Date: 2025-06-29 Pat Name: SEEMA BATES Department: Room: - Gender: Male Sand Screener: : 1975 Requested By: [id number] Order Number: [id number] Reading MD: JULIUS WEAVER M.D. Measurements Intervals [place] Rate: 107 P: 53 NC: 124 QRS: 88 QRSD: 84 T: -30 QT: 342 QTc: 405 Interpretive Statements 1120 Sinus tachycardia 4068 Nonspecific Twave abnormality 9140 abnormal rhythm ECG Compared to ECG 07/14/2020 06:42:05 Sinus rhythm no longer present Electronically Signed On 06-29-2025 11:47:51 EST by JULIUS WEAVER M.D.
[2025-06-29] MEDS: 0.9 % SODIUM CHLORIDE 1,000 ML 1000 ML IV (11:20)
--- OUTSIDE RECORDS SUMMARY | 2025-06-29 11:21 | XMS_ITS | Patient Health Record ---
Author Organization [facility] Address [address] [place] [address] Care Team Providers Care User Acceptance Tester Name Role Phone Dr. Sin Mahmood Primary Care Provider Reason For Referral No Information Medications Medication SIG (Take, Route, Frequency, Duration) Notes Start Date End Date Status Ibuprofen 800 MG Tablet 1 tablet with fo od or milk as needed Orally Three times a day 08/08/2023ctive Encounters Encounter Location Date Provider Diagnosis [facility] [address] [place] [address] 08/31/2024 Sin Mahmood [facility] [place] [address]/28[facility] [place] [address] 11/19/2024Joseph RizkPartial loss of teeth, unspecified cause, class I K08.401 [facility] [address] [place] [address]/10/2025 Sin Mahmood Assessments Encounter Date Diagnosis (ICD Code) Assessment Notes Treatment Notes Treatment Clinical Notes Section Notes 11/19/2024 Partial loss of teeth, unspecifi ed cause, class I (ICD-10 - K08.401) Plan Of Treatment No Information Insurance Providers Payer Name Payer Address Payer Phone Subscriber Number Group Number Insured Name Patient Relationship to Insured Coverage Start Date Coverage End Date [place] Medicaid [address] [address] [place] [address] [phone] [place] [address] [id number] SEEMA BATES Self - patient is the insured Dental [employer] [facility] [address] [place] [id number] BATESelf - patient is the [id number] 2024
--- OUTSIDE RECORDS SUMMARY | 2025-06-29 11:22 | XMS_ITS | Clinical Summary ---
Author Organization [employer] tem Address [facility] [place]-[id number] [address] [place] [address] Care Team Providers Care Touch Up Painter Hand Name Role Phone Terry Tillman HIRAM-MANAGER CLINICAL Primary Care Provider [phone] Allergies No known active allergies Medications MedicationSigDispense [...] Every DayCigarettes Smokeless Tobacco: FormerAlcohol UseStandard Drinks/WeekCommentsNot Bdafhkerq77 (1 standard drink = 0.6 oz pure alcohol)states he is no longer drinkingChildcare AnswerDate JhcezrlpAuttfootpWadxgar39/12/2019EmploymentAnswerDate Recorded TqsbuyusyhRwzftnf03/12/2019Purpose - LifeAnswerDate RecordedPurpose and direction in fwroWxgngea97/11/2021ex and Gender InformationValueDate Recorded Sex Assigned at BirthNot on fileLegal LtcGgka6502/09/2015 11:45 AM EDTGender IdentityNot on fileSexual OrientationNot on file Last Filed Vital Signs Vital SignReadingTime TakenCommentsBlood Locvsqlv016/05059/ 2:50 PM EDT Evsvr84738/19/2022 2:50 PM EDKMpydfbpsklj72.8 ??C (98.3 ??F)01/22/2022 2:50 PM EDTRespiratory Ldli236901/22/2022 2:50 PM EDTOxygen Fpcvzehlij21%01/22/2022 2:50 PM EDTInhaled Oxygen Concentration--Thnpnd63.6 kg (160 lb)01/22/2022 2:50 PM EDT Hrbhmd935.8 cm (5' 10 )01/22/2022 2:50 PM EDTBody Mass Index22.9601/22/2022 2:50 PM EDT Plan of Treatment Health MaintenanceDue DateLast DoneCommentsDepression Hemkffhal92/14/1989Tobacco Pjippidbx44/14/1989Adult BMI Fziumtjdm71/14/1995DTaP,Tdap and Td Vaccines (1 - Tdap)1996COVID-19 Vaccine (2 - season)/ Influenza Zxvvvyd3103/07/2025 Medical Devices Not on file Insurance Care Teams Team MemberRelationshipSpecialtyStart DateEnd Date Terry Tillman APRN-MANAGER CLINICAL PCP - GeneralPrimary Care Avvbgwhu32/22/22
--- OUTSIDE RECORDS SUMMARY | 2025-06-29 11:22 | XMS_ITS | Clinical Summary ---
Author Organization [facility] Address [address], [address] [place] [address] Care Team Providers Care Java Development Manager Name Role Phone Terry Tillman APRN - NOE Primary Care Provi yajaira Allergies Active AllergyReactionsCriticalityNoted DateCommentsDust Mite Zsqovjg1507/14/2020 Short Ragweed Pollen Ext07/14/2020 Medications MedicationSigDispense QuantityRefillsLast [...] mouth daily10/11/2022ctive Active Problems ProblemNoted DateDiagnosed DateCardiac iwfikm3907/15/20205010Dnqxdpb08/09/2021cute on chronic uxlbqgmomkqq70/09/2021Hepatitis C007/15/2020lcohol abuse07/15/2020 Chronic alcoholic omfnslfgxjoz64/08/2021 Social History Tobacco UseTypesPacks/DayYears UsedDateSmoking Tobacco: Every [...] Date RecordedSex Assigned at BirthNot on fileLegal HcdFkqx4308/16/2012 1:54 PM EST Gender IdentityNot on fileSexual OrientationNot on fileOccupationIndustryJob Start DateJob End DateunemployedNot on fileNot on fileNot on file Last Filed Vital Signs Vital SignReadingTime TakenCommentsBlood Sosdpntx865/8604 10:40 AM EDT Gayrq76230/28/2023 10:40 AM DQIVoahcmkqvhd56.1 ??C (98.8 ??F)07/15/2020 3:10 AM ESTRespiratory Tpbi057407/15/2020 10:00 AM ESTOxygen Noxmbzifst93%07/15/2020 8:00 AM ESTInhaled Oxygen Concentration--Cgwbed08.1 kg (148 lb)11/01/2022 10:40 AM FTOAhaifu321.8 cm (5' 10 )07/14/2020 7:00 PM ESTBody Mass Index21.24007/14/2020 7:00 PM EST Plan of Treatment Health MaintenanceDue DateLast DoneCommentsDepression Oqrwro7404/19/1989 DTaP/Tdap/Td vaccine (1 - Tdap)1996Hepatitis B vaccine (1 of 3 - 19+ 3- dose series)1996Pneumococcal 0-49 years Vaccine (1 of 2 - PCV)1996 Dzxvjb0304/19/20176623Abusnqjkxze57/14/2022olorectal Cancer Rggvhh2004/19/2022FIT/FOBT: Average risk2022Fecal-DNA (Cologuard): Average risk2022 Sigmoidoscopy/CT xthvdqqhljum25/14/2022Flu vaccine (#1)5COVID-19 Vaccine (2 - season)5008/03/2021HIV jqvjydJektugsmb78/18/2013 Hepatitis C bgqqgmTkxanzgohjzp44/18/2013Hepatitis A vaccineAged OutNo longer eligible based on [...] SCREENRoutine 01/21/2013 4:13 PM EDT HEPATITIS PANEL, WXATDVouwzou50/18/2013 4:13 PM EDT from Last 3 Months or Most Recently Relevant to Health Maintenance Results * (ABNORMAL) Hepatitis Panel, Acute (01/21/2013 4:13 PM EDT)ComponentValueRef RangeTest MethodAnalysis TimePerformed AtPathologist SignatureHepatitis B Surface FiKYFSBIBQKEPFE48/18/2013 9:40 PM EDTMHPN LABHepatitis C AbREACTIVE(A) NR01/21/2013 [...] RNA by PCR. Hep B Core Ab, ElCTVUQTJQPTLLPK74/18/2013 10:06 PM EDTMHPN LABHep A IgM KQYEBRFFTOSIP87/18/2013 10:06 PM EDTMHPN LABComment:Performed at [address] [id number] Specimen (Source) Anatomical Location / LateralityCollection Method / VolumeCollection Time Received Time01/21/2013 4:13 PM EDT01/21/2013 4:14 PM EDT Narrative Authorizing ProviderResult TypeResult StatusHaridas M Dasani MDIMMUNOLOGY ORDERABLESFinal ResultPerforming OrganizationAddressCity/State/ZIP CodePhone Number [facility] * HIV-1 and HIV-2 antibodies (01/21/2013 4:13 PM EDT)ComponentValueRef RangeTest MethodAnalysis TimePerformed AtPathologist SignatureHIV 1/2 Antibody EWTDZJLHZUMEL75/19/2013 12:46 AM EDTMHPN LABComment: ? Interpretation: ? The presence of antibody to HIV and its association with the potential infectivity, transmission or diagnosis of AIDS has not been established. Furthermore, a 'Non-Reactive' test result does not exclude the possibility of exposure to or infection with HIV. If the above test result is 'Reactive', the Laboratory will order the confirmatory test. Performed at [facility] [address] [place], [place] [id number] Specimen (Source)Anatomical Location / LateralityCollection Method / Volume Collection TimeReceived Time01/21/2013 4:13 PM EDT01/21/2013 4:14 PM EDT Narrative Authorizing ProviderResult TypeResult StatusDmitriy Milligan MDIMMUNOLOGY ORDERABLESFinal ResultPerforming OrganizationAddressCity/State/ZIP CodePhone Number [facility] from Last 3 Months or Most Recently Relevant to Health Maintenance Additional Health Concerns InfectionOnset DateLast QdfhnfbmrVWTT58/08/202101/02/2021 Insurance Advance Directives * Full Code (Latest Code Status on File) Date ActivatedDate InactivatedComments1/02/2021 6:59 PM07/15/2020 1:44 PM * Full Code Date ActivatedDate InactivatedComments07/14/2020 6:55 PM07/14/2020 6:59 PM Care Teams Team MemberRelationshipSpecialtyStart DateEnd Date Terry Tillman APRN - NOE PCP - GeneralNurse Practitioner11/01/22
--- OUTSIDE RECORDS SUMMARY | 2025-06-29 11:22 | XMS_ITS | Clinical Summary ---
Author Organization [facility] Address [address] [place] [address] Care Team Providers Care Paperhanger Supervisor Name Role Phone Terry Tillman MD Unavailable Candida Romero NP Unavailable [phone] Allergies No known active allergies Medications MedicationSigDispense [...] InformationValueDate RecordedSex Assigned at BirthNot on fileLegal JwrOdbw6209/18/2022 8:28 PM EDTGender IdentityNot on file Sexual OrientationNot on file Last Filed Vital Signs Vital SignReadingTime TakenCommentsBlood Mhaeisbr221/5401 12:00 PM EST Pulse--Temperature--Respiratory Rate--Oxygen Saturation--Inhaled Oxygen Concentration--Lvqmam66 kg (150 lb)07/16/2023 9:57 AM IJKYwcinn805.8 cm (5' 10 ) 07/16/2023 9:57 AM ESTBody Mass Index21.52007/16/2023 9:57 AM EST Plan of Treatment Health MaintenanceDue DateLast DoneCommentsCT Qfvnypxoactu1977Colonoscopy 1977Colorectal Cancer Fyseekyoq1977FIT-DNA1977FIT1977 FOBT04/19/19778250Oibdbfczyfttn1977Diabetes: Retinopathy Tbywvrhxd09/14/1987 Diabetes: Urine Protein Jozfcsqsf84/14/1996Pneumococcal Vaccine: Pediatrics (0 to 5 Years) and At-Risk Patients (6 to 64 Years) (1 of 2 - PCV)1996 Diabetes: Hemoglobin A1C, 07/12/2022Influenza Vaccine (#1) 2025 Procedures Procedure NamePriorityDate/TimeAssociated DiagnosisCommentsHEMOGLOBIN J6BUjjegey 06/23/2024 10:00 AM EST from Last 3 Months or Most Recently Relevant to Health Maintenance Results * Hemoglobin A1c (06/23/2024 10:00 AM EST)Specimen (Source)Anatomical Location / LateralityCollection Method / VolumeCollection TimeReceived TimeBloodVenous blood specimen / Unknown Narrative Authorizing ProviderResult TypeResult StatusNoms Provider Unallocated ARLAB BLOOD ORDERABLESFinal Result from Last 3 Months or Most Recently Relevant to Health Maintenance Insurance Care Teams Team MemberRelationshipSpecialtyStart DateEnd Date Candida Romero, RESTAURANT AREA DIRECTOR [address] [place] [address] PCP - [facility] [employer] [facility] [employer]04/06/24 Terry Tillman MD [address] [place] [address] Referring PhysicianInternal Medicine07/16/23
--- OUTSIDE RECORDS SUMMARY | 2025-06-29 11:22 | XMS_ITS | Clinical Summary ---
Author Organization [facility] Address [address] [place] [address] Care Team Providers Care Quality Associate Name Role Phone Unavailable Primary Care Provider Unavailabl e Allergies No known active allergies Medications MedicationSigDispense QuantityRefillsLast FilledStart DateEnd DateStatus amlodipine-benazepril 5-10 MG capsule 06/18/2020Active buprenorphine 8 mg/naloxone 2 mg SL film dissolve 1 and 1/2 FILMS under the tongue once daily06/08/2020Active buPROPion 150 MG tablet XL 06/18/2020Active albuterol (2.5 MG/3ML) 0.083% inhalation solution INHALE 1 (ONE) vial via NEBULIZER EVERY 4 HOURS RXYMME1106/06/2020Active D 5000 125 MCG (5000 UT) per tablet Take 5,000 Units by mouth daily.06/01/2020Active cloNIDine 0.2 MG tablet Take 0.2 mg by mouth 3 times daily as needed.05/20/2020Active docosanol 10 % Cream cream APPLY TO THE AFFECTED AREA(S) GOIECVOT37/06/2020Active fluticasone 50 MCG/ACT Suspension nasal spray instill [...] InformationValueDate RecordedSex Assigned at BirthNot on fileLegal RmcMfmr19/13/2020 4:07 PM ESTGender IdentityNot on file Sexual OrientationNot on file Last Filed Vital Signs Vital SignReadingTime TakenCommentsBlood Gbtoqacz058/6906/18/2020 7:02 PM EST Uqnqv816106/18/2020 7:02 PM QGKDfzjcursadz13.2 ??C (97.1 ??F)06/18/2020 4:22 PM ESTRespiratory Lqlf245908/19/2019 7:02 PM ESTOxygen Ytfgqmkbjc37%06/18/2020 7:02 PM ESTInhaled Oxygen Concentration--Weight--Height--Body Mass Index-- Plan of Treatment Health MaintenanceDue DateLast DoneCommentsHEPATITIS C VIRUS OBKNPBTAT1977 FNKYFPV2204/19/1977HIV SCREENING SGBSIRMTQA16/14/1992HEP B VACCINE (1 of 3 - 19+ 3-dose series)1996TDAP (ADULT)1996LIPID OMALXPEJW37/14/2017 COLORECTAL CANCER SCREENING EDXDXNCVAJ13/14/2022COVID-19 VACCINE ( - 2024- season)2025INFLUENZA VACCINE (#1)03/07/20258129NNTMYZXLZUqsbpnyhepwg82/13/2020 PNEUMOCOCCAL VACCINE SERIESAged OutNo longer eligible based on patient's age to complete this topic Procedures Procedure NamePriorityDate/TimeAssociated DiagnosisCommentsCOMPREHENSIVE METABOLIC RZZROIJTJ07/13/2020 5:28 PM EST from Last 3 Months or Most Recently Relevant to Health Maintenance Results * (ABNORMAL) COMPREHENSIVE METABOLIC PANEL (06/18/2020 5:28 PM EST)Component ValueRef RangeTest MethodAnalysis TimePerformed AtPathologist SignatureGlucose 128(H)70 - 100 MG/DLLAB, OSUComment: NORMAL <100 mg/dL PREDIABETES 101-126 mg/dL DIABETES 126 mg/dL or higher BUN77 - 20 MG/DLLAB, OSUCREATININE SERUM0.64(L)0.7 - 1.2 MG/DLLAB, VBTBQPYLG678 137 - 145 MMOL/LLAB, OSUPotassium3.2(L)3.5 - 5.1 MMOL/LLAB, ANPBBVYTGUB94(L)98 - 107 MMOL/LLAB, OSUComment:Please note: Triglyceride levels of 600mg/dL or higher may positively bias chloride results by approximately 2.1 mmolCALCIUM9.98.4 - 10.2 MG/DLLAB, OSUPROTEIN, TOTAL7.76.3 - 8.2 GM/DLLAB, OSUAlbumin4.33.5 - 5.0 G/dlLAB, OSUBILIRUBIN, TOTAL0.50.2 - 1.3 MG/DLLAB, FLIBAJ60(H)17 - 59 IU/LLAB, OSUALKALINE TGDGRZANXYV49503 - 126 IU/LLAB, OSUCARBON DIOXIDE (CO2)3022 - 30 MMOL/LLAB, OSUA/G Ratio1.31.3 - 2.2 RATIOLAB, URMMNH06<50 IU/LLAB, OSUESTIMATED GFR, NON AMER>60ml/min/1.73sq.mLAB, OSUESTIMATED GFR, [...] / LateralityCollection Method / Volume Collection TimeReceived MqcyVapgl10/13/2020 5:28 PM EST06/18/2020 5:29 PM EST Narrative Authorizing ProviderResult TypeResult StatusLevi K Webber MDCHEMISTRY ORDERABLES Final ResultPerforming OrganizationAddressCity/State/ZIP CodePhone Number LAB, [facility] [address] [place] [address] from Last 3 Months or Most Recently Relevant to Health Maintenance
[2025-06-29 11:40] VITALS: PULSE 112
[2025-06-29 11:42] VITALS: PULSE 109
[2025-06-29 11:48] LABS: Hematocrit 35.6 % (42.0-54.0); Hemoglobin 12.5 g/dL (14.0-18.0); Immature Granulocytes Abs Auto 0.02 10^3/uL (0.00-0.03); Immature Granulocytes Pct Auto 0.2 % (0.0-0.5); Lymphocytes Absolute Auto 0.9 10^3/uL (1.2-3.8); Mean Corpuscular HGB Conc 35.1 g/dL (29.9-35.2); Mean Corpuscular Hemoglobin 36.0 pg (25.9-34.0); Mean Corpuscular Volume 102.6 fL (80.0-94.0); Red Blood Count 3.47 10^6/uL (4.70-6.10); White Blood Count 8.2 10^3/uL (4.0-11.0)
[2025-06-29 12:06] LABS: Platelet Count 28 10^3/uL (150-450)
[2025-06-29 12:10] LABS: Alanine Aminotransferase 68 U/L (16-63); Albumin Globulin Ratio 1.1; Albumin Level 3.9 g/dL (3.4-5.0); Alkaline Phosphatase 73 U/L (46-116); Anion Gap 29.4; Aspartate Amino Transferase 141 U/L (15-37); Blood Urea Nitrogen 18.0 mg/dL (7.0-18.0); Calcium 9.0 mg/dL (8.5-10.1); Carbon Dioxide 19.6 mmol/L (21.0-32.0); Chloride 94 mmol/L (98-107); Estimated GFR (African America >60 (>=60 mL/min/1.73m^2); Estimated GFR (Non-African Ame >60 (>=60 mL/min/1.73m^2); Globulin 3.7 g/dL; Glucose 121 mg/dL (74-106); Potassium 3.0 mmol/L (3.5-5.1); Sodium 140 mmol/L (136-145); Total Protein 7.6 g/dL (6.4-8.2)
[2025-06-29 12:14] VITALS: BP 102/78
--- NOTE | 2025-06-29 13:26 | ED_ITS ---
HPI HPI - General Adult General Chief complaint: GI Bleed Stated complaint: GI ISSUES Time Seen by Provider: 06/29/25 10:57 Source: patient and other Source information: EMS Mode of arrival: ambulance Limitations: altered mental status Limitations comment: TBI History of Present Illness HPI narrative: Patient is a 50-year-old male presenting to the emergency department with his father for concerns of generalized weakness and GI bleed. The patient was seen here in the emergency department 3 days ago for the same complaints. He was diagnosed with melena/upper GI bleed and was in the process of being transferred to [facility], however the patient left AMA. He presents again today for worsening of his symptoms. According to the father, the patient's melena is actually improved and is no longer having black/tarry stools. However, the patient seems to be weaker and having a hard time taking care of himself. He does drink alcohol daily, his last drink was just prior to arrival. The patient himself declines any symptoms. He has no chest pain, shortness of breath, fevers, chills, abdominal pain, nausea, or vomiting. He does not want to be here in the ED, and was forced to come by his father. The patient is his own guardian and does not have a DPOA. Related Data Home Medications ?Medication ?Instructions ?Recorded ?Confirmed lisinopril 20 mg tablet 20 mg PO DAILY 06/27/2506/07 acamprosate 333 mg tablet,delayed 333 mg PO Q8H 06/29/25 release albuterol sulfate 90 mcg/actuation 2 puff inhalation Q 6H 06/29/25 06/29/25 aerosol inhaler buprenorphine 8 mg-naloxone 2 mg 2 film buccal Q24H 06/29/25 sublingual film clonidine HCl 0.1 mg tablet 0.1 mg PO BEDTIME 06/29/25 06/29/25 glipizide 5 mg tablet 5 mg PO BID 06/29/25 5 Allergies Allergy/AdvReac Type Severity Reaction Status Date / Time No Known Drug Allergies Allergy Verified 06/26/25 20:50 Opioid HPI Opioid Management Most Recent Opioid Data: Last Pain Scale 4 06/26/25, 21:55 Review of Systems ROS Status of ROS 10 or more systems reviewed and unremark able except as noted in history and below PFSH PFS Social History Little interest or pleasure in doing things: not at all Feeling down, depressed, or hopeless: not at all Exam Narrative Exam Narrative: CONSTITUTIONAL: No acute distress, mentating appropriately, oriented x 3, answering questions and following commands appropriately SKIN: Was warm and dry. EYES: No scleral icterus. Mild conjunctival pallor. EARS, NOSE, THROAT: Moist oral mucosa. RESPIRATORY: Clear to auscultation bilaterally, no wheezes, crackles, or stridor, no use of accessory muscles CARDIOVASCULAR: Tachycardic rate and regular rhythm. There is no S3, S4, murmur, rub. GASTROINTESTINAL: Abdomen is soft, nontender, and nondistended. No rebound tenderness or guarding. MUSCULOSKELETAL: No peripheral edema. NEUROLOGIC: Patient is awake and alert. Facies were symmetrical. Constitutional Vital Signs, click to edit/add: Last Vital Signs Temp 97.7 F 06/29/25 11:04 Pulse 109 H 06/29/25 11:42 Resp 24 H 06/29/25 11:42 BP 102/78 06/29/25 12:14 Pulse Ox 100 06/29/25 11:15 O2 Del Method Room Air 06/29/25 11:04 Course Vital Signs Vital signs: Vital Signs Temperature 97.7 F 06/29/25 11:04 Pulse Rate 118 H 06/29/25 11:04 Respiratory Rate 18 06/29/25 11:04 Blood Pressure 98/55 06/29/25 11:04 Pulse Oximetry 100 06/29/25 11:04 Oxygen Delivery Method Room Air 06/29/25 11:04 Temperature 97.7 F 06/29/25 11:04 Pulse Rate 109 H 06/29/25 11:42 Respiratory Rate 24 H 06/29/25 11:42 Blood Pressure 102/78 06/29/25 12:14 Pulse Oximetry 100 06/29/25 11:15 Oxygen Delivery Method Room Air 06/29/25 11:04 Medical Decision Making [facility] Narrative Medical decision making narrative: Patient is a 50-year-old male presenting to the emergency department with his father for concerns of generalized weakness and GIB over the last week. On review of external documentation, patient was seen here in the emergency department 3 days ago for the same complaint. He left AMA prior to being transferred to [facility] for GIB/GI consultation. According to the father and patient, his GI bleed has improved and he is no longer having melena - though the generalized weakness persists. His vital signs on arrival today were significant for tachycardia and a soft blood pressure, otherwise were within normal limits. Examination as noted above. There is no evidence of active bleeding at this time. Differential diagnosis includes anemia secondary to GI bleed, generalized weakness, debility, alcohol intoxication, or other electrolyte/metabolic derangement. Patient is a daily alcohol user and is at risk for GI bleeding secondary to varices, peptic ulcer disease, diverticulosis. He did obtain a CT abdomen 3 days ago which demonstrated a 3 cm left renal lesion without evidence of acute GI pathology. IV was established and laboratory studies were reordered. He was given 1 L bolus of normal saline. Laboratory studies were significant for macrocytic anemia with a hemoglobin of 12.5, decreased 2 g/dL compared to CBC from 3 days ago. He is thrombocytopenic with a platelet count of 28, decreased from 71 a few days ago. He is hypochloremic and hypokalemic. No evidence of acute renal injury. There is a transaminitis, likely related to alcohol use. His EtOH level today is 367. 12 Lead EKG: Sinus tachycardia at a rate of 107. Normal axis. No ST segment elevations. QRS, IA, and QTc interval within normal limits. Final impression: Sinus tachycardia w ithout evidence of acute myocardial ischemia I did recommend that the patient be transferred to [facility] for further treatment, including a GI consultation. However, the patient declines transfer and wishes to be discharged AMA. Though his alcohol level was elevated, he is oriented x 3 and is his own legal guardian. The patient was apprised of the potential risks of leaving the hospital AGAINST MEDICAL ADVICE. They include serious complications, permanent disability, . At the time of my interview with the patient, the patient was alert, oriented, and capable. I urged the patient to return to the hospital as soon as possible to complete their evaluation and treatment. Patient has demonstrated the ability to understand the relevant medical choices and the consequences of these choices. The patient understands the pertinent information namely that failure to stay could deprive of critical diagnostic knowledge that could lead to a diagnosis that could then allow treatment to cure the problem, the patient understands the potential nature of the diagnosis and the fact that it could be threatening to life or cause permanent disability, and the patient can state back to me and understanding of the consequences of not staying for complete diagnostic testing. FINAL IMPRESSION: #Acute GI bleed #Acute generalized weakness #Acute hypokalemia #Acute thrombocytopenia #Acute alcohol intoxication #History of chronic alcohol use disorder DISPOSITION: Left hospital AMA CONDITION: Fair Medical Records Medical records reviewed: Yes I reviewed the patient's medical records Lab Data Lab results reviewed: Yes I reviewed the patient's lab results Labs: Lab Results 06/29/25 Range/Units 11:33 WBC 8.2 (4.0-11.0) 10^3/uL RBC 3.47 L (4.70-6.10) 10^6/uL Hgb 12.5 L (14.0-18.0) g/dL Hct 35.6 L (42.0-54.0) % MCV 102.6 H (80.0-94.0) fL MCH 36.0 H (25.9-34.0) pg MCHC 35.1 (29.9-35.2) g/dL RDW 13.8 (11.0-15.0) % Plt Count 28 L* (150-450) 10^3/uL MPV 10.1 (9.5-13.5) fL Neut % (Auto) 79.7 H (43.0-75.0) % Lymph % (Auto) 11.0 L (20.5-60.0) % Crenshaw % (Auto) 7.6 (1.7-12.0) % Eos % (Auto) 0.5 L (0.9-7.0) % Baso % (Auto) 1.0 (0.2-2.0) % Neut # (Auto) 6.6 H (1.4-6.5) 10^3/uL Lymph # (Auto) 0.9 L (1.2-3.8) 10^3/uL Crenshaw # (Auto) 0.6 (0.3-0.8) 10^3/uL Eos # (Auto) 0.0 (0.0-0.7) 10^3/uL Baso # (Auto) 0.1 (0.0-0.1) 10^3/uL Abs Immat Gran (auto) 0.02 (0.00-0.03) 10^3/uL Imm/Tot Granulo (auto) 0.2 (0.0-0.5) % Sodium 140 (136-145) mmol/L Potassium 3.0 L (3.5-5.1) mmol/L Chloride 94 L (98-107) mmol/L Carbon Dioxide 19.6 L (21.0-32.0) mmol/L Anion Gap 29.4 BUN 18.0 (7.0-18.0) mg/dL Creatinine 1.06 (0.70-1.30) mg/dL Est GFR ( Amer) >60 (>=60 mL/min/1.73m^2) Est GFR (Non-Af Amer) >60 (>=60 mL/min/1.73m^2) BUN/Creatinine Ratio 17.0 Glucose 121 H (74-106) mg/dL Calcium 9.0 (8.5-10.1) mg/dL Total Bilirubin 1.5 H (0.2-1.0) mg/dL AST 141 H (15-37) U/L ALT 68 H (16-63) U/L Alkaline Phosphatase 73 (46-116) U/L Total Protein 7.6 (6.4-8.2) g/dL Albumin 3.9 (3.4-5.0) g/dL Globulin 3.7 g/dL Albumin/Globulin Ratio 1.1 Ethanol Quant 367 mg/dL ECG Data Attestation: I personally reviewed and interpreted this ECG as follows: Discharge Plan Discharge Stand Alone Forms: Portal Instructions Chief Complaint: GI Bleed Clinical Impression: Acute upper GI bleed, Alcohol abuse Patient Disposition: Left Against Medical Advice Time of Disposition Decision: 11:53 Condition: Fair Mode of Transportation: Private Vehicle Prescriptions / Home Meds: No Action acamprosate 333 mg tablet,delayed release (DR/EC) 333 mg PO Q8H albuterol sulfate 90 mcg/actuation HFA aerosol inhaler 2 puff INHALATION Q6H buprenorphine-naloxone 8-2 mg film 2 film buccal Q24H clonidine HCl 0.1 mg tablet 0.1 mg PO BEDTIME glipizide 5 mg tablet 5 mg PO BID lisinopril 20 mg tablet 20 mg PO DAILY Print Language: Iranian Instructions: Abuse of Alcohol (ED), Melena (ED) Additional Instructions: Follow up with family DR as instructed Referrals: ASHA CARTER [Physician, Gastroenterology] - 1 week KATIA MELGOZA [Primary Care Provider, Unknown] - 1 week Discharge Date/Time: 06/29/25 12:15
== END 2025-06-29 12:15 | disposition left against medical advice (07) ==
PROVIDERS: Emergency Provider Student in an Organized Health Care Education/Training Program; PCP Nurse Practitioner Family
DX: K92.2 Gastrointestinal hemorrhage, unspecified (principal); F10.129 Alcohol abuse with intoxication, unspecified; Y90.8 Blood alcohol level of 240 mg/100 ml or more; Z53.29 Procedure and treatment not carried out because of patient's decision for other reasons
CPT/HCPCS: 36415; 80053; 80320; 85025; 93005; 99284